=== PATIENT | female | born 1945 | race Caucasian/White ===

== ENCOUNTER 2020-09-19 09:04 | Outpatient (CLI) | payer OTHER, SELFPAY ==
--- NOTE | ~2020-09-19 | MM_ITS ---
EXAMINATION: MM screening [facility] BI w elena HISTORY: Screening mammogram TECHNIQUE: Craniocaudal and mediolateral oblique 3-D tomosynthesis images were obtained and synthetic 2-D images were generated. CAD analysis was submitted and interpreted. COMPARISON: 07/09/2019, 07/04/2019, 05/07/2017 BREAST PARENCHYMAL COMPOSITION: The breasts are almost entirely fatty. FINDINGS: There is no evidence of suspicious mass, calcification, or architectural distortion to sugg est malignancy in either breast. There has been no suspicious interval change. IMPRESSION: 1. No mammographic evidence of malignancy. 2. Recommend routine screening mammography in one year. BI-RADS Category 1: Negative Reviewed, dictated and finalized at location A. IC MAN
== END 2020-09-19 09:05 | disposition home or self-care (01) ==
LOC: ANHIMG 09:08
PROVIDERS: PCP Internal Medicine; Visit Provider Obstetrics & Gynecology
DX: Z12.31 Encounter for screening mammogram for malignant neoplasm of breast (principal)
CPT/HCPCS: 77063; 77067

== ENCOUNTER 2021-02-15 12:51 | Outpatient (CLI) | payer OTHER, SELFPAY ==
--- NOTE | ~2021-02-15 | DEXA_ITS ---
Bone Density Report Name: Liz Medellin Age: 75 Sex: Female Ethnicity: White Date of : 1945 Indication: postmenopausal; height loss; hysterectomy; Referring Provider: Gerda Madden Study: Bone densitometry was performed. Exam Date: February 15, 2021 Accession number: [id number] Bone Density: Region BMD T-score Z-score Classification AP Spine (L1, L2) 1.028 0.4 2.7 Normal Femoral Neck (Left) 0.743 -1.0 1.2 Normal Total Hip (Left) 0.938 0.0 1.8 Normal Total Hip Bilateral Avg 0.891 -0.4 1.4 Normal Femoral Neck (Right) 0.749 -0.9 1.2 Normal Total Hip (Right) 0.842 -0.8 1.0 Normal World Health Organization criteria for BMD impression classify patients as: Normal (T-score at or above -1.0), Osteopenia (T-score between -1.0 and -2.5), or Osteoporosis (T-score at or below -2.5). 10-year Fracture Risk: FRAX not reported because: All T-scores for Spine Total, Hip Total, Femoral Neck at or above -1.0 Clinical Information Provided by Patient: Has used the following medications: Vitamin D, Calcium Has the following medical conditions: Hysterectomy Patient maximum height was 64.5 Menopause Age: 56 Drinks caffeinated beverages Onset of menses at age 14 Number of children 2 Impression: The patient has normal bone mass. Discussion: BONE DENSITY IS ABOVE THE MINIMUM DESIRABLE LEVEL AT ALL SKELETAL SITES TESTED. This patient?s bone mineral density is above the minimum desirable level (T-score -1.0 or better) at all sites measured. The patient should follow a healthful lifestyle (good nutrition with adequate calcium and vitamin D, and appropriate weight-bearing exercise). Follow-Up: Consider repeating this study in 5 years or sooner if there is some new clinical indication. Reported by: BE on 02/15/2021 1:09:00 PM. Reviewed, dictated and finalized at location AKeo BEATTY
== END 2021-02-15 12:52 | disposition home or self-care (01) ==
LOC: ANHIMG 12:53
PROVIDERS: PCP Internal Medicine; Visit Provider Nurse Practitioner
DX: Z78.0 Asymptomatic menopausal state (principal)
CPT/HCPCS: 77080

== ENCOUNTER 2021-03-21 02:03 | Day surgery (SDC) | payer OTHER, SELFPAY ==
[2021-03-10 14:28] VITALS: BMI 35.7
--- NOTE | 2021-03-20 13:50 | WPDANESEPPF ---
Anes - Initial Pre Proc Eval Procedure: Operation Date: 03/21/21 10:30 Proposed Procedures p Colonoscopy - Damian Ball MD Date/Time: 03/20/21 13:50 Surgeon: Damian Ball MD Pre Op Diagnosis: positive cologuard Patient Data Age: 75 Gender: F Height: 1.57 m Weight: 88.6 kg Allergies Allergy/AdvReac Type Severity Reaction Status Date / Time No Known Allergies Allergy Verified 03/21/21 06:47 Home Medications Medication Instructions Recorded Confirmed Type alendronate 70 mg tablet 70 mg PO WEEKLY 08/09/20 03/10/21 History bupropion HCl 300 mg 24 hr tablet, 300 mg PO QAM 08/09/20 03/10/21 History extended release phentermine 37.5 mg tablet 37.5 mg PO DAILY 08/09/20 03/10/21 History sertraline 50 mg tablet 50 mg PO DAILY 08/09/20 03/10/21 History amlodipine 10 mg tablet 10 mg PO DAILY #90 tablet 10/30/20 03/10/21 Rx pantoprazole 40 mg tablet,delayed 40 mg PO QAM #90 tablet 11/30/20 03/10/21 Rx release atorvastatin 10 mg tablet 10 mg PO DAILY #90 tablet 02/23/21 03/10/21 Rx meloxicam 15 mg tablet 15 mg PO DAILY #90 tablet 03/15/21 Rx Patient hx anesthesia problems: none Family hx anesthesia problems: none PMFSH Past Medical History Medical History Anxiety Arthritis Carpal tunnel syndrome Chronic GERD COPD (chronic obstructive pulmonary disease) Hiatal hernia Hypertension Incisional hernia Osteoporosis Surgical History Surgical History H/O sinus surgery H/O: hysterectomy History of carpal tunnel release of both wrists History of cholecystectomy History of incisional hernia repair History of repair of hiatal hernia History of splenectomy Family History Family History Mother Family history of arthritis COPD (chronic obstructive pulmonary disease) Kidney disease Cancer Sibling Family history of emphysema Father Family history of heart disease in male family member before age 55 Lung cancer Other Family history of cardiovascular disease Hypertension Social History Social History Smoking status: Never smoker Alcohol intake: current Alcohol use details: rarely Substance use: never Substance use type: does not use Gender identity (if verbalized by the patient): Female Spiritual care concerns: No Anes - Eval Final PreProcedure Day of Procedure 03/20/21 13:50 Patient weight: obese Heart: regular rate and rhythm Lungs: clear to auscultation and normal air movement Airway: Mallampati scale class III Neurological: alert and oriented Last oral intake: >/= 8 hours ASA classification: III Emergent: no Anesthetic plan: proceed Anesthesia type and monitoring: general GIVS and standard monitoring Informed Consent: The patient's anesthetic plan and its attendant risks and benefits were discussed with the patient/family/POA. Questions were solicited and answers provided to the satisfaction of the patient/family/POA.
[2021-03-21 11:09] VITALS: BP 124/59; PULSE 88; RESP 18; TEMP 35.9; O2SAT 99
[2021-03-21] MEDS: LACTATED RINGERS 1,000 ML 150 ML IV CONT (11:10)
--- NOTE | 2021-03-21 12:23 | PM.HPGS ---
History of Present Illness History of Present Illness Consent: Risks, benefits, and alternatives have been discussed and questions answered. Patient agrees to proceed with procedure. Chief complaint: positive cologuard Narrative: Liz Medellin is a 75 year old female with last colonoscopy 10 years ago, had recent positive cologuard. Unfortunately earlier this morning she feel lightheaded and fell down to the floor, had facial trauma (nasal fracture) already evaluated in ER. Patient still would like to proceed with colonoscopy today. Review of Systems Constitutional: Constitutional: Denies headache(s) and Denies weakness Eyes: Eyes: Denies blurry vision ENT: Reports Normal hearing present, Denies headache(s) and Denies neck pain Cardiovascular: Cardiovascular: Denies chest pain and Denies dyspnea Respiratory: Respiratory: Denies dyspnea Gastrointestinal: Gastrointestinal: Reports no additional gastrointestinal complaints Genitourinary: Genitourinary: Denies dysuria Musculoskeletal: Musculoskeletal: Denies neck pain Integumentary/Breasts: Skin/Breast: Denies dry skin Neurologic: Reports Normal hearing present, Denies headache(s) and Denies weakness Psychiatric: Psychiatric: Denies anxiety Endocrine: Endocrine: Denies change in body appearance Hematologic/Lymphatic: Hematologic/Lymphatic: Denies easy bleeding Allergic/Immunologic: Allergic/Immunologic: Denies urticaria PMFSH Past Medical History Medical History Anxiety Arthritis Carpal tunnel syndrome Chronic GERD COPD (chronic obstructive pulmonary disease) Hiatal hernia Hypertension Incisional hernia Osteoporosis Surgical History Surgical History H/O sinus surgery H/O: hysterectomy History of carpal tunnel release of both wrists History of cholecystectomy History of incisional hernia repair History of repair of hiatal hernia History of splenectomy Family History Family History Mother Family history of arthritis COPD (chronic obstructive pulmonary disease) Kidney disease Cancer Sibling Family history of emphysema Father Family history of heart disease in male family member before age 55 Lung cancer Other Family history of cardiovascular disease Hypertension Social History Social History Smoking status: Never smoker Alcohol intake: current Alcohol use details: rarely Substance use: never Substance use type: does not use Gender identity (if verbalized by the patient): Female Spiritual care concerns: No Meds Home Medications and Allergies Home Medications Medication Instructions Recorded Confirmed Type alendronate 70 mg tablet 70 mg PO WEEKLY 08/09/20 03/10/21 History bupropion HCl 300 mg 24 hr tablet, 300 mg PO QAM 08/09/20 03/10/21 History extended release phentermine 37.5 mg tablet 37.5 mg PO DAILY 08/09/20 03/10/21 History sertraline 50 mg tablet 50 mg PO DAILY 08/09/20 03/10/21 History amlodipine 10 mg tablet 10 mg PO DAILY #90 tablet 10/30/20 03/10/21 Rx pantoprazole 40 mg tablet,delayed 40 mg PO QAM #90 tablet 11/30/20 03/10/21 Rx release atorvastatin 10 mg tablet 10 mg PO DAILY #90 tablet 02/23/21 03/10/21 Rx meloxicam 15 mg tablet 15 mg PO DAILY #90 tablet 03/15/21 03/21/21 Rx Allergies Allergy/AdvReac Type Severity Reaction Status Date / Time No Known Allergies Allergy Verified 03/21/21 06:47 Vital Signs Vital Signs - 24 hr 03/21/21 11:09 Temperature 96.6 F L Pulse Rate 88 Respiratory Rate 18 Blood Pressure 124/59 L Pulse Oximetry 99 Exam Const: General: comfortable and no acute distress HENMT: Other: facial trauma from recent fall Neck: Neck: no JVD Resp: Auscultation: clear to auscultation bilaterally Cardio: Rate: regular ra
[2021-03-21 12:54] VITALS: BP 125/65; PULSE 89; RESP 21; O2SAT 97
[2021-03-21 13:04] VITALS: BP 133/72; PULSE 79; RESP 16; O2SAT 100
[2021-03-21 13:14] VITALS: BP 144/58; PULSE 73; RESP 19; O2SAT 100
== END 2021-03-21 13:33 | disposition home or self-care (01) ==
PROVIDERS: PCP Internal Medicine; Visit Provider Internal Medicine Gastroenterology
PROC: 0DJD8ZZ Inspection of Lower Intestinal Tract, Via Natural or Artificial Opening Endoscopic (ICD-10-PCS; CPT 45378; principal; 2021-03-21 10:30)
DX: R19.5 Other fecal abnormalities (principal); K57.30 Diverticulosis of large intestine without perforation or abscess without bleeding; K64.8 Other hemorrhoids; I10 Essential (primary) hypertension; J44.9 Chronic obstructive pulmonary disease, unspecified; K21.9 Gastro-esophageal reflux disease without esophagitis; M81.0 Age-related osteoporosis without current pathological fracture; F41.9 Anxiety disorder, unspecified
CPT/HCPCS: 45378; J2704; J7120

== ENCOUNTER 2021-03-21 06:24 | Emergency (ER) | payer OTHER, SELFPAY ==
[2021-03-21] VITALS (24 sets, daily range): BP systolic 113–180; BP diastolic 70–99; PULSE 77–108; RESP 11–21; TEMP 36.7; O2SAT 93–100
--- NOTE | ~2021-03-21 | CT_ITS ---
EXAMINATION: CT facial & cervical spine wo EXAM DATE: 03/21/2021 08:05 INDICATION: Fall, right facial trauma and left posterior neck pain. TECHNIQUE: Spiral CT of the facial bones was acquired in the axial plane. Coronal reformatted images were also reviewed. Spiral CT of the cervical spine was performed without contrast. Axial images we re reviewed. Coronal and sagittal reformatted images were also reviewed. The dose-length product (DL P) for this examination was 336.96 mGy-cm. The exposure was tailored according to patient size, and iterative reconstruction (ASIR) was used as additional dose reduction technique. There is no prior s tudy for comparison. FINDINGS: FACIAL CT: Acute closed posttraumatic nasal bone fractures bilaterally with mild buckling. Acute feng al septal fracture. There is moderate rightward nasal septal deviation. There are maxillary sinus win lisa procedures. The orbits and sinuses are intact. The orbits, globes and extraocular muscles are un remarkable. Bilateral cataract surgery. Mandible intact. The visualized sinuses and mastoid air cells are well aerated. Some debris in the right external auditory canal. CERVICAL CT: There is no evidence of acute cervical fracture. The odontoid process is intact. Pre-d ens space is normal. Prevertebral soft tissue is normal. There are no soft tissue abnormalities elsi ntified. There is no disc space widening or traumatic vertebral body subluxation suspected. There i s moderate cervical spondylosis. A detailed level by level evaluation of spondylosis can be added as addendum if requested. IMPRESSION: 1. Nasal bone and nasal septal fractures. 2. Cervical spondylosis without fracture. Reviewed, dictated and finalized at location A.
--- NOTE | ~2021-03-21 | CT_ITS ---
EXAMINATION: CT brain wo con DATE: 03/21/2021 08:06 INDICATION: Fall with head injury and facial trauma TECHNIQUE: Computed tomography (CT) of the head was performed without intravenous contrast. Sagittal and coronal reconstructions were performed. The mA was adjusted according to patient size. Iterative reconstruction technique was employed. The dose-length product was 336.96 mGy-cm. COMPARISON: head CT dated 08/18/2015 FINDINGS: Incompletely visualized bilateral nasal bone fractures No calvarial fracture. No acute intracranial h emorrhage, acute infarction or abnormal extra axial fluid collection. Ventricles are normal and symme tric. No mass/mass effect. Changes of bilateral intraocular lens replacement. The orbits, paranasal s inuses and mastoid air cells are normal. IMPRESSION: 1. No calvarial fracture or acute intracranial process. 2. Bilateral nasal bone fractures. See separate cervical spine and maxillofacial CT for further detai l. Reviewed, dictated and finalized at location D. IMPRESSION: 1. No calvarial fracture or acute intracranial process. 2. Bilateral nasal bone fractures. See separate cervical spine and maxillofacia l CT for further detail.
--- NOTE | ~2021-03-21 | XR_ITS ---
EXAMINATION: XR knee LT min 4V EXAM DATE: 03/21/2021 08:15 INDICATION: Knee pain. TECHNIQUE: Left knee frontal, crosstable lateral, orthogonal oblique projections for interpretation. Comparison is made to prior examination from 2018. FINDINGS: No evidence osteochondral defect or joint body in the left knee joint. Mild patellofemor al and medial tibiofemoral compartment primary osteoarthritis. There are no acute fractures or disloc ations identified. There is no subcutaneous gas. The soft tissue is unremarkable. There are no ra diopaque foreign bodies. IMPRESSION: No acute osseous findings. Reviewed, dictated and finalized at location A. IMPRESSION: No acute osseous findings.
--- NOTE | ~2021-03-21 | XR_ITS ---
EXAMINATION: XR hand LT min 3V, XR wrist LT min 3V EXAM DATE: 03/21/2021 08:15 INDICATION: Initial encounter following injury, with pain of the left hand and wrist. TECHNIQUE: Left hand frontal, lateral and oblique projections obtained and reviewed. Left wrist fron vick, frontal with ulnar deviation, oblique and lateral projections obtained and reviewed. There is n o prior study for comparison. FINDINGS: Left metacarpal bones are unremarkable. Left wrist scapholunate joint space is maintained . Moderate primary osteoarthritis of the 2nd distal interphalangeal joint, the triscaphe and 1st car pometacarpal joint. Less osteoarthritis elsewhere. There are no acute fractures or dislocations ident ified. There is no subcutaneous gas. The soft tissue is unremarkable. There are no radiopaque for eign bodies. IMPRESSION: No acute osseous findings. Reviewed, dictated and finalized at location A. IMPRESSION: No acute osseous findings. IMPRESSION: No acute osseous findings.
--- NOTE | ~2021-03-21 | XR_ITS ---
EXAMINATION: XR chest 2V DATE: 03/21/2021 08:15 INDICATION: Fall. Weakness. TECHNIQUE: frontal and lateral views of the chest were obtained. COMPARISON: Chest radiograph dated 03/07/2019 FINDINGS: The lungs remain clear with no focal airspace opacities, pulmonary edema, pleural effusion or pneumot horax. The cardiomediastinal silhouette is normal. Cholecystectomy clips in the right upper quadrant. Additional surgical clips in the left upper quadrant suggesting prior splenectomy. Moderate thoracic spondylosis. IMPRESSION: 1. No acute cardiopulmonary disease. Reviewed, dictated and finalized at location D.
--- NOTE | 2021-03-21 06:53 | ECG_ITS ---
Measurements Intervals [place] Rate: 77 P: 39 HI: 185 QRS: -58 QRSD: 103 T: 16 QT: 394 QTc: 447 Interpretive Statements SINUS RHYTHM LEFT ANTERIOR FASCICULAR BLOCK VOLTAGE CRITERIA FOR LVH MINIMAL Q WAVES- HIGH LATERAL LEADS BASELINE ARTIFACT- II, AVR, AVF, V1, V3-V6 ABNORMAL ECG Electronically Signed On 03-21-2021 6:55:14 CDT by Oskar Lawrence D.O.
--- NOTE | 2021-03-21 08:00 | PC.NURSE ---
PT IN CT WILL MEDICATE AND GET ORTHOSTATICS UPON RETURN.
--- NOTE | 2021-03-21 08:01 | ED.FALL ---
HPI - Fall General Chief Complaint: Fall Stated Complaint: weakness/ fall/ facial injury Time Seen by Provider: 03/21/21 07:03 Source: patient and RN notes reviewed Mode of arrival: ambulatory Limitations: no limitations History of Present Illness HPI Narrative: This is a 75 year old female who presents for evaluation of weakness and fall. Patient has been performing bowel prep for a colonoscopy that is scheduled today. She has been having diarrhea all night and this morning. She states this morning she was walking and she felt weak. This caused her to fall forward hitting her face. She denies LOC. She is complaining nose swelling, epistaxis, left wrist, left hand and left knee pain. She was able to walk to care. She denies chest pain, sob, nausea or vomiting. She denies blood in her stool today. Related Data Home Medications Medication Instructions Recorded Confirmed alendronate 70 mg tablet 70 mg PO WEEKLY 08/09/20 03/10/21 bupropion HCl 300 mg 24 hr tablet, 300 mg PO QAM 08/09/20 03/10/21 extended release phentermine 37.5 mg tablet 37.5 mg PO DAILY 08/09/20 03/10/21 sertraline 50 mg tablet 50 mg PO DAILY 08/09/20 03/10/21 Allergies Allergy/AdvReac Type Severity Reaction Status Date / Time No Known Allergies Allergy Verified 03/21/21 06:47 Review of Systems Review of Systems: All systems reviewed & are unremarkable except as noted in HPI and below PMFSH Past Medical History Medical History Anxiety Arthritis Carpal tunnel syndrome Chronic GERD COPD (chronic obstructive pulmonary disease) Hiatal hernia Hypertension Incisional hernia Osteoporosis Surgical History Surgical History H/O sinus surgery H/O: hysterectomy History of carpal tunnel release of both wrists History of cholecystectomy History of incisional hernia repair History of repair of hiatal hernia History of splenectomy Family History Family History Mother Family history of arthritis COPD (chronic obstructive pulmonary disease) Kidney disease Cancer Sibling Family history of emphysema Father Family history of heart disease in male family member before age 55 Lung cancer Other Family history of cardiovascular disease Hypertension Social History Social History Smoking status: Never smoker Alcohol intake: current Alcohol use details: rarely Substance use: never Substance use type: does not use Gender identity (if verbalized by the patient): Female Spiritual care concerns: No Exam Const: General: no acute distress and alert Orientation/consciousness: patient oriented x3 HENMT: Head: normocephalic and atraumatic General nose exam: Abnormal nasal septum present deviated Mouth: Yes Normal oral and palatal mucosa present and Yes lip normal Throat: uvula midline Other: nasal bridge swelling and bruising; dried blood in mouth but no oral laceration or loose teeth Eyes: EOM: EOMs intact bilaterally Resp: Effort & Inspection: normal respiratory effort and no retractions Auscultation: clear to auscultation bilaterally Cardio: Rate: regular rate Rhythm: regular rhythm Heart sounds: no murmurs GI: GI Palp: Yes Soft to palpation, No Tenderness to palpation present (GI) and No Guarding due to palpation present (GI) Auscultation: normal bowel sounds Skin: Other: small bruising to left knee Neuro: General: patient oriented x3, moves all extremities and CN's II-XI intact bilaterally Extrem: Other: FROM Course Reevaluation(s) Reevaluation #1: Dr. Zandra Collado called and he states patient can still get her colonoscopy. PAtient wants to have colonoscopy today. She has been given 2 L IVF. PAtient was dehydrated from her bowel prep. She was able to walk to bathroom
[2021-03-21] MEDS: SODIUM CHLORIDE 0.9% IV 1,000 ML 999 ML IV CONT ×2 (08:29→09:26)
[2021-03-21 08:39] LABS: Basophils Absolute Auto 0.1 K/mm3 (0.0-0.1); Basophils Percent Auto 0.4 % (0.2-1.2); Eosinophils Percent Auto 0.2 % (0-4.4); Hematocrit 44.4 % (37.0-47.0); Hemoglobin 14.7 g/dL (12.0-15.0); Immature Granulocyte Absolute 0.07 K/mm3 (0.00-0.031); Immature Granulocyte Percent A 0.5 % (0-0.5); Lymphocytes Absolute Auto 2.49 K/mm3 (0.9-3.2); Lymphocytes Percent Auto 18.1 % (18.3-44.2); Mean Corpuscular HGB Conc 33.1 g/dl (32-36); Mean Corpuscular Hemoglobin 31.5 pg (26-34); Mean Corpuscular Volume 95.3 fl (80-100); Mean Platelet Volume 10.3 fl (7.4-10.4); Monocytes Absolute Auto 0.6 K/mm3 (0.1-0.6); Monocytes Percent Auto 4.4 % (2.6-8.5); Neutrophils Absolute Auto 10.5 K/mm3 (1.3-6.7); Neutrophils Percent Auto 76.4 % (45.5-73.1); Platelet Count Result 332 k/mm3 (150-375); Red Blood Count 4.66 M/mm3 (4.2-5.4); Red Cell Distribution Width 13.3 % (11.5-14.5); White Blood Count 13.8 K/mm3 (4.5-10.0)
--- NOTE | 2021-03-21 08:40 | PC.NURSE ---
Pt unable to urinate, refusing cath, aware of need for ua.
--- NOTE | 2021-03-21 09:19 | PC.NURSE ---
Pt assisted to restroom, steady gait, denies dizziness. Attempted urine sample in hat but missed, states she will attempt again tyler. GI lab contacted and informed that pt is in ed.
--- NOTE | 2021-03-21 09:28 | PC.NURSE ---
Spoke with Tata from GI lab, she states that they are willing to scope pt today but she must be completely dc from ed, edp informed and states that she is waiting on cmp to result. Pt updated.
[2021-03-21 10:07] LABS: Alanine Aminotransferase 22 U/L (4-35); Albumin Level 3.9 g/dL (3.5-5.1); Alkaline Phosphatase 92 U/L (38-126); Anion Gap 7 mmol/L (8-16); Aspartate Amino Transferase 30 U/L (14-36); Bilirubin,Total 1.4 mg/dL (0.2-1.3); Blood Urea Nitrogen 15 mg/dL (7-17); Calcium 9.7 mg/dL (8.4-10.2); Carbon Dioxide 24 mmol/L (22-30); Chloride 105 mmol/L (98-107); Estimated CRCL calculation 44 ml/min; Estimated Glomerular Filt Rate 54; Glucose 119 mg/dL (65-110); Potassium 3.7 mmol/L (3.4-5.0); Sodium 136 mmol/L (137-145)
[2021-03-21 10:43] LABS: Add Urine Microscopic? YES; Appearance Urine Clear (Clear); Bilirubin Urine Negative (Negative); Blood Urine 1+ (Negative); Color Urine Colorless (Yellow); Glucose Urine UA Negative (Negative); Ketones Urine Negative (Negative); Leukocyte Esterase Ur Negative LEU/UL (Negative); Nitrate Urine Negative (Negative); Protein Urine Negative (Negative); Urobilinogen Urine Negative mg/dL (<2.0); WBC Urine 0-3 /hpf
[2021-03-21 11:32] LABS: Specific Grav Ur 1.004 (1.001-1.035)
== END 2021-03-21 10:50 | disposition home or self-care (01) ==
PROVIDERS: Emergency Provider General Practice; PCP Internal Medicine
DX: S02.2XXA Fracture of nasal bones, initial encounter for closed fracture (principal); E86.0 Dehydration; F41.9 Anxiety disorder, unspecified; J44.9 Chronic obstructive pulmonary disease, unspecified; I10 Essential (primary) hypertension; W19.XXXA Unspecified fall, initial encounter
CPT/HCPCS: 36415; 70450; 70486; 71046; 72125; 73110; 73130; 73564; 80053; 81001; 85025; 93005; 96360; 96361; 99284; J2704; J7030; J7120

== ENCOUNTER 2021-07-24 14:30 | Outpatient (CLI) | payer OTHER, SELFPAY ==
--- NOTE | ~2021-07-24 | XR_ITS ---
XR knee RT 3V DATE: 07/24/2021 14:49 INDICATION: Generalized right knee pain TECHNIQUE: AP, lateral and sunrise views COMPARISON: None FINDINGS: There is mild loss of height at the medial compartment with minimal shanel-articular spurring . There is minimal shanel-articular spurring at the patellofemoral joint with slight articular irregulari ty of the patella. No fracture or dislocation or joint effusion is detected. No periosteal reaction or bone destruction. IMPRESSION: Mild osteoarthritis Reviewed, dictated and finalized at location A. 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
== END 2021-07-24 14:31 | disposition home or self-care (01) ==
LOC: ANHIMG 14:33
PROVIDERS: PCP Internal Medicine; Visit Provider Internal Medicine
DX: M17.11 Unilateral primary osteoarthritis, right knee (principal)
CPT/HCPCS: 73562

== ENCOUNTER → 2021-08-19 06:56 | Outpatient (CLI) | payer OTHER, SELFPAY ==
[2021-08-19 20:23] LABS: SARS-CoV-2 RNA PCR Positive
== END ==
PROVIDERS: PCP Internal Medicine; Visit Provider Internal Medicine
DX: U07.1 COVID-19 (principal)
CPT/HCPCS: C9803; U0003; U0005

== ENCOUNTER 2021-10-12 07:09 | Outpatient (CLI) | payer OTHER, SELFPAY ==
--- NOTE | ~2021-10-12 | MM_ITS ---
EXAMINATION: MM screening [facility] BI w elena HISTORY: Screening mammogram TECHNIQUE: Craniocaudal and mediolateral oblique 3-D tomosynthesis images were obtained and synthetic 2-D images were generated. CAD analysis was submitted and interpreted. COMPARISON: 09/19/2020, 07/09/2019, 07/04/2018 BREAST PARENCHYMAL COMPOSITION: There are scattered areas of fibroglandular density. FINDINGS: There is no suspicious mass, calcification, or architectural distortion to suggest malignan cy in either breast. There has been no suspicious interval change. IMPRESSION: 1. No mammographic evidence of malignancy. 2. Recommend routine screening mammography in one year. BI-RADS Category 1: Negative Reviewed, dictated and finalized at location A.
== END 2021-10-12 07:10 | disposition home or self-care (01) ==
LOC: ANHIMG 07:10
PROVIDERS: PCP Internal Medicine; Visit Provider Internal Medicine
DX: Z12.31 Encounter for screening mammogram for malignant neoplasm of breast (principal)
CPT/HCPCS: 77063; 77067

== ENCOUNTER 2021-11-08 09:47 | Outpatient (CLI) | payer OTHER, SELFPAY ==
--- NOTE | ~2021-11-08 | XR_ITS ---
EXAMINATION: XR lg joint inject/asp w image DATE: 11/08/2021 10:42 INDICATION: Left hip pain. TECHNIQUE: A time-out was performed to verify the patient's name, date of , and procedure to b e performed. The procedure including the risks, benefits, and alternatives was discussed with the pat ient. Risks discussed included bleeding and infection. The patient understood the risks and agreed to proceed. The skin overlying the left hip joint was prepped and draped in usual sterile fashion. An esthetic was administered with 1% lidocaine subcutaneously. A 22 G needle was advanced under fluoros copic guidance into the joint. Injection of 1 mL of Omnipaque 240 confirmed intra-articular position of the needle. Subsequently, injectate consisting of 5 mL 1% lidocaine and 2 mL 10 mg/mL Kenalog wa s instilled. The needle was removed and the entry site was cleaned and dressed. There were no immed iate complications. Fluoroscopy exposure time was 0.1 minutes. The total number of images was 2. FINDINGS: Real-time fluoroscopy demonstrates the needle in the left hip joint. Patient's pain prior t o procedure:8/10. Patient's pain following the procedure: 0/10. IMPRESSION: 1. Fluoroscopy guided left hip joint injection of local anesthetic and steroid with decrease in the p atient's presenting pain. Reviewed, dictated and finalized at location A. IMPRESSION: 1. Fluoroscopy guided left hip joint injection of local anesthetic and steroid with decrease in the patient's presenting pain.
== END 2021-11-08 09:48 | disposition home or self-care (01) ==
PROVIDERS: PCP Internal Medicine; Visit Provider Orthopaedic Surgery
DX: M25.552 Pain in left hip (principal)
CPT/HCPCS: 20610; 77002; J3301; Q9966

== ENCOUNTER 2021-12-21 11:00 | Outpatient (RCR) | payer OTHER, SELFPAY ==
--- NOTE | 2021-11-17 09:39 | PTOPEVAL ---
PHYSICAL THERAPY INITIAL EVALUATION. Thank you for referring Liz Medellin to [facility].? The patient is scheduled to be seen for therapy? 2x/week for 4 weeks. Please review, sign, date and return this plan of care NAYA. I agree with and certify that the following plan of care is medically necessary. Referring Physician Date Attending Provider: Navid Chauhan APN *PT Outpatient Evaluation Start: 11/17/21 Evaluation Information Diagnosis Low back pain Onset ~1 month Subjective Information Pt states about 1 month ago Query Text:As Reported By Patient/ her R knee starting bother her Family , she received an injection and this pain went away. Soon after that her L hip and low back on the L started bother her as well. She received an injection in her L hip as well . This helped a little but she is still having pain. She reports difficulties walking, sleeping, sitting too long, and ambulating stairs. Pain Assessment Left Hip(s) Reported Pain Level 3 Pain Description Aching,Dull,Sharp Pain Radiation Back,Left Leg Pain Frequency Acute,Intermittent Lowest Pain Intensity 1 Greatest Pain Intensity 8 Pain Aggravating Factors Prolonged Position,Sitting, Stair Climbing Pain Relief Interventions Used By Heat,Inactivity/Rest, Patient Medication Lumbar ROM Lumbar Flexion Active [place] Lumbar Extension (0-40) 10 Lateral Flexion B lateral flexion - 6 in above Query Text:Active Hands to: lateral knee joint line Lateral Rotation Right (0-45) 25 Lateral Rotation Left (0-45) 25 Lumbar ROM 50% of Normal Normal Lumbar Segmental Motion No Lower Extremity Range of Motion General Lower Extremity Range of Motion WFL/Left,WFL/Right Lower Extremity Muscle Strength Testing Gross Lower Extremity Strength B LE grossly 4/5 R glute med 3/5 L glute med 2/5 Muscle Length Testing Two-Joint Hip Flexor Shortened Muscles Short (R) Iliopsoas,Short (L) Iliopsoas Right Prone Hip Internal Rotator Length 30 Left Prone Hip Internal Rotator Length ( 15 Right Prone Hip External Rotator Length 50 Left Prone Hip External Rotator Length ( 30 Left Hamstring Length -45 Right Hamstring Length
--- NOTE | 2021-12-21 11:29 | PTOPEVAL ---
PHYSICAL THERAPY PROGRESS REPORT AND DISCHARGE SUMMARY. Thank you for referring Liz Medellin to [facility].? The patient is to be discharged from skilled therapy services at this time. Please review, sign, date and return this plan of care NAYA. I agree with and certify that the following plan of care is medically necessary. Referring Physician Date Attending Provider: Navid Chauhan APN Evaluation Information Diagnosis Low back pain Onset ~1 month Subjective Information Pt states her back pain and Query Text:As Reported By Patient/ hip pain have both improved. Family She states if she sits too long her legs start to get tight so she has made a point to stand and move around more often. She only reports mild achy pain in her posterior thigh this date. She states her pain has become less frequent Pain Assessment Self Report Pain Assessment Left Hip(s) Reported Pain Level 4 Greatest Pain Intensity 8 Cervical and Lumbar ROM Lumbar ROM Lumbar Flexion Active [place],Ankle Lumbar Extension (0-40) 30 Lateral Flexion B lateral flexion - 2 in above Query Text:Active Hands to: lateral knee joint line Lateral Rotation Right (0-45) 40 Lateral Rotation Left (0-45) 40 Lumbar ROM WNL Normal Lumbar Segmental Motion No Lumbar Comments No pain with active lumbar motion Lower Extremity Range of Motion General Lower Extremity Range of Motion WFL/Left,WFL/Right Lower Extremity Muscle Strength Testing Gross Lower Extremity Strength B LE grossly 4/5 R glute med 3/5 L glute med 2/5 Muscle Length Testing Two-Joint Hip Flexor Shortened Muscles Short (R) Iliopsoas,Short (L) Iliopsoas,Short (R) Rectus Femoris,Short (L) Rectus Femoris Right Prone Hip Internal Rotator Length 30 Left Prone Hip Internal Rotator Length ( 15 Right Prone Hip External Rotator Length 50 Left Prone Hip External Rotator Length ( 30 Left Hamstring Length -40 Right Hamstring Length -35 Palpation Assessment Palpation L greater trochanter Balance Assessment Timed Up and Go Test (TUG) (Seconds) 9 Assistive Devices None Comments Initially: 12s 5/26/22: 9s 5 Time Sit to Stand Time in Seconds 21
== END 2021-12-21 15:17 | disposition home or self-care (01) ==
LOC: ANHPT 11:00
PROVIDERS: PCP Internal Medicine; Visit Provider Nurse Practitioner
DX: M54.50 Low back pain, unspecified (principal); M16.12 Unilateral primary osteoarthritis, left hip
CPT/HCPCS: 97014; 97110; 97112; 97161; 97530; G0283

== ENCOUNTER 2022-01-09 07:31 | Outpatient (CLI) | payer OTHER, SELFPAY ==
--- NOTE | ~2022-01-09 | MR_ITS ---
EXAMINATION: MR lumbar spine wo con DATE: 01/09/2022 08:37 INDICATION: Low back pain, unspecified. TECHNIQUE: Magnetic resonance imaging (MRI) of the lumbar spine was performed without intravenous con trast. Sequences included sagittal T2-weighted FSE, sagittal T2-weighted FS FSE, sagittal T1-weighted FSE, and axial T2-weighted FSE. COMPARISON: Lumbar spine radiographs 07/01/2017 FINDINGS: There is 4 mm anterolisthesis of L4 on L5. Vertebral body heights are normal. There is yennifer rely decreased disc height at T10-T11, T11-T12, and L3-L4, mildly decreased disc height at L4-L5, and severely decreased disc height at L5-S1 with endplate remodeling. There is interbody fusion at L5-S1 . The distal spinal cord signal intensity is normal. The conus medullaris is at L1. The following dis c levels are specifically discussed: L1-L2: The disc is bulging and has an annular fissure. There is moderate right and mild left facet shantel int osteoarthritis. There is mild left neural foraminal stenosis. There is mild central canal stenosi s. L2-L3: The disc is bulging. There is severe bilateral facet joint osteoarthritis. There is mild bilat eral neural foraminal stenosis. There is mild central canal stenosis. L3-L4: The disc is bulging and has an annular fissure. There is severe bilateral facet joint osteoart hritis. There is mild bilateral neural foraminal stenosis. There is mild central canal stenosis. L4-L5: The disc is bulging and has an annular fissure. There is severe bilateral facet joint osteoart hritis. There is mild bilateral neural foraminal stenosis. There is mild central canal stenosis. L5-S1: The disc is bulging. There is severe bilateral facet joint osteoarthritis. There is mild left neural foraminal stenosis. There is mild central canal stenosis. IMPRESSION: 1. Severe lumbar and lower thoracic spondylosis. Reviewed, dictated and finalized at location B.
== END 2022-01-09 07:32 | disposition home or self-care (01) ==
PROVIDERS: PCP Internal Medicine; Visit Provider Nurse Practitioner
DX: M54.42 Lumbago with sciatica, left side (principal); M47.816 Spondylosis without myelopathy or radiculopathy, lumbar region; M47.814 Spondylosis without myelopathy or radiculopathy, thoracic region
CPT/HCPCS: 72148

== ENCOUNTER 2022-08-07 16:07 | Outpatient (NON) | payer OTHER, SELFPAY | END 2022-08-07 16:08 | disposition home or self-care (01) | LOC: ANHLAB 08-08 16:09 | PROVIDERS: PCP Nurse Practitioner; Visit Provider Nurse Practitioner | DX: D18.01 Hemangioma of skin and subcutaneous tissue (principal) | CPT/HCPCS: 88305 ==

== ENCOUNTER 2022-09-24 11:31 | Emergency (ER) | payer OTHER, SELFPAY ==
[2022-09-24 11:35] VITALS: BP 130/75; PULSE 71; RESP 16; TEMP 36.4; O2SAT 100
--- NOTE | 2022-09-24 12:31 | ED.EPISTAXIS ---
HPI - Epistaxis General Chief complaint: Epistaxis Stated complaint: nosebleed Time Seen by Provider: 09/24/22 12:07 History of Present Illness HPI Narrative: Patient is a 77-year-old female presenting with epistaxis. Patient states that in the middle of the night she developed a nosebleed from her left nostril. States that she coughed up a couple of clots. States that she takes a low-dose aspirin daily but no other antiplatelets or anticoagulation. States that the bleeding was able to be controlled by applying pressure. She is currently not bleeding. States that she was unable to get an appointment with her PCP until next week so she came in for evaluation. No chest pain, shortness of breath, lightheadedness. No other concerns or symptoms at this time. Related Data Home Medications Medication Instructions Recorded Confirmed cholecalciferol (vitamin D3) 50 50 mcg PO DAILY 12/05/21 06/28/22 mcg (2,000 unit) capsule atorvastatin 20 mg tablet 20 mg PO DAILY 06/28/22 06/28/22 gabapentin 100 mg capsule 100 mg PO BID 06/28/22 06/28/22 Allergies Allergy/AdvReac Type Severity Reaction Status Date / Time No Known Allergies Allergy Verified 06/28/22 13:42 Review of Systems Review of Systems: All systems reviewed & are unremarkable except as noted in HPI and below PMFSH Past Medical History Medical History Anxiety Arthritis Asthma Carpal tunnel syndrome Chronic GERD COPD (chronic obstructive pulmonary disease) Degenerative disc disease, lumbar Diabetes Hiatal hernia Hyperlipidemia Hypertension Incisional hernia Mitral valve prolapse Osteoporosis TIA (transient ischemic attack) Surgical History Surgical History H/O sinus surgery H/O: hysterectomy History of carpal tunnel release of both wrists History of cholecystectomy History of incisional hernia repair History of repair of hiatal hernia History of splenectomy Family History Family History Mother Heart disease Sibling Family history of emphysema Cancer Father Family history of heart disease in male family member before age 55 Lung cancer Other Family history of cardiovascular disease Social History Social History Smoking status: Never smoker Alcohol intake: current Alcohol use details: rarely Substance use: never Substance use type: does not use Lack of Transportation: No Lack of Food: Never True Current Housing: I Have Housing Concerned About Future Housing: No Difficulty Paying Gas/Electric Bills: No Difficulty Paying for Meds: No Currently Unemployed: No Education: High School Diploma/GED Difficulty w/ Childcare or Family Care: No Living arrangements: with family Additional living arrangements comments: Occupation/Education: retired Gender identity (if verbalized by the patient): Female Spiritual care concerns: No Exam Narrative: GENERAL: Well-appearing, well-nourished, and in no acute distress. HEAD: Normocephalic, atraumatic. EYES: PERRLA and EOMI. ENT: Nares clear, no rhinorrhea or epistaxis. Mucous membranes moist. No epistaxis currently; nares are clear; oropharynx is clear NECK: Supple. CHEST: Clear to auscultation. No respiratory distress. HEART: Regular rate and rhythm. No murmur heard. Normal peripheral pulses. ABDOMEN: Soft, nontender, nondistended EXTREMITIES: Normal range of motion. No edema. SKIN: Warm, dry, no rash. NEURO: No focal deficits. Alert and oriented x3. PSYCH: Normal mood and affect. Course Vital Signs Vital signs: Vital Signs Temperature 97.5 F L 09/24/22 11:35 Pulse Rate 71 09/24/22 11:35 Respiratory Rate 16 09/24/22 11:35 Blood Pressure 130/75 09/24/22 11:35 Pulse Oximetry 100 09/24/22 11:35 Oxygen D
== END 2022-09-24 12:50 | disposition home or self-care (01) ==
PROVIDERS: Emergency Provider Emergency Medicine; PCP Nurse Practitioner
DX: R04.0 Epistaxis (principal); F41.9 Anxiety disorder, unspecified; M19.90 Unspecified osteoarthritis, unspecified site; K21.9 Gastro-esophageal reflux disease without esophagitis; J44.9 Chronic obstructive pulmonary disease, unspecified; E11.9 Type 2 diabetes mellitus without complications; E78.5 Hyperlipidemia, unspecified; I10 Essential (primary) hypertension
CPT/HCPCS: 99283

== ENCOUNTER 2022-10-03 09:38 | Emergency (ER) | payer OTHER, SELFPAY ==
[2022-10-03 10:01] VITALS: BP 145/67; PULSE 79; RESP 16; TEMP 36.3; O2SAT 97
--- NOTE | 2022-10-03 11:14 | ED.URI ---
HPI - URI/Sore Throat General Chief Complaint: Upper Respiratory Infection Stated Complaint: cough Time Seen by Provider: 10/03/22 11:14 Source: patient and RN notes reviewed Mode of arrival: ambulatory Limitations: no limitations History of Present Illness HPI Narrative: 77-year-old female presented for complaint of sinus congestion and productive cough of yellow/white sputum and intermittent headache for 5 days. Denies associated chest pain, shortness of breath, wheezing, nausea, vomiting, fatigue, fevers or chills. Taking whole bottle of mucinex without relief. Denies sick contacts. MD elicited complaint: cough Related Data Home Medications Medication Instructions Recorded Confirmed cholecalciferol (vitamin D3) 50 50 mcg PO DAILY 12/05/21 06/28/22 mcg (2,000 unit) capsule gabapentin 100 mg capsule 100 mg PO BID 06/28/22 06/28/22 aspirin 81 mg chewable tablet 81 mg PO DAILY 10/03/22 10/03/22 Allergies Allergy/AdvReac Type Severity Reaction Status Date / Time No Known Allergies Allergy Verified 10/03/22 10:14 Review of Systems Review of Systems: CONSTITUTIONAL: Denies malaise, chills, sweats, fever EYES: Denies visual changes, redness, or discharge ENT: Reports rhinorrhea, congestion, denies sinus pain, otalgia, sore throat CARDIOVASCULAR: Denies chest pain, palpitations, edema RESPIRATORY: Reports cough, post nasal drainage. Denies dyspnea GASTROINTESTINAL: Denies abdominal pain, nausea, vomiting, diarrhea SKIN: Denies rash or itching MUSCULOSKELETAL: Denies myalgia PMFSH Past Medical History Medical History Anxiety Arthritis Asthma Carpal tunnel syndrome Chronic GERD COPD (chronic obstructive pulmonary disease) Degenerative disc disease, lumbar Diabetes Hiatal hernia Hyperlipidemia Hypertension Incisional hernia Mitral valve prolapse Osteoporosis TIA (transient ischemic attack) Surgical History Surgical History H/O sinus surgery H/O: hysterectomy History of carpal tunnel release of both wrists History of cholecystectomy History of incisional hernia repair History of repair of hiatal hernia History of splenectomy Family History Family History Mother Heart disease Sibling Family history of emphysema Cancer Father Family history of heart disease in male family member before age 55 Lung cancer Other Family history of cardiovascular disease Social History Social History Smoking status: Never smoker Alcohol intake: current Alcohol use details: rarely Substance use: never Substance use type: does not use Lack of Transportation: No Lack of Food: Never True Current Housing: I Have Housing Concerned About Future Housing: No Difficulty Paying Gas/Electric Bills: No Difficulty Paying for Meds: No Currently Unemployed: No Education: High School Diploma/GED Difficulty w/ Childcare or Family Care: No Living arrangements: with family Additional living arrangements comments: Occupation/Education: retired Gender identity (if verbalized by the patient): Female Spiritual care concerns: No Exam Narrative: GENERAL: mildly Ill-appearing, nontoxic no acute distress. HEAD: Normocephalic EYES: PERRLA, conjunctivae clear ENT: Mucous membranes moist. TMs pearly mari with dull light reflex bilaterally; no tragal tenderness. Oropharynx erythematous without lesions or exudate NECK: Supple. No lymphadenopathy CHEST: Clear to auscultation, breath sounds equal. No wheezing, rhonchi, rales, or stridor. No respiratory distress, speaks in full sentences. HEART: Regular rate and rhythm. No murmur heard. SKIN: Warm, dry, no rash. NEURO: Alert and oriented x3. PSYCH: Normal mood and affect Course Course Emergency Course:
== END 2022-10-03 11:26 | disposition home or self-care (01) ==
PROVIDERS: Emergency Provider Nurse Practitioner Family; PCP Internal Medicine
DX: J06.9 Acute upper respiratory infection, unspecified (principal); E11.9 Type 2 diabetes mellitus without complications; J44.9 Chronic obstructive pulmonary disease, unspecified; E78.5 Hyperlipidemia, unspecified; Z86.73 Personal history of transient ischemic attack (TIA), and cerebral infarction without residual deficits
CPT/HCPCS: 99213; G0463

== ENCOUNTER 2022-12-03 17:12 | Emergency (ER) | payer OTHER, SELFPAY ==
[2022-12-03 17:17] VITALS: BP 149/76; PULSE 77; RESP 20; TEMP 37.1; O2SAT 91
--- NOTE | 2022-12-03 19:24 | PC.NURSE ---
Pt approached triage desk and states Im not staying, Ill get ahold of my doctor tomorrow . Pt educated of risks of leaving before seeing provider, verbalized understanding. Pt ambulated out of ED with steady gait, in no obvious distress.
== END 2022-12-03 19:51 | disposition left against medical advice (07) ==
LOC: ANHED 19:30
PROVIDERS: PCP Internal Medicine
DX: R10.31 Right lower quadrant pain (principal)
CPT/HCPCS: 99199

== ENCOUNTER 2022-12-12 07:25 | Outpatient (CLI) | payer OTHER, SELFPAY ==
--- NOTE | ~2022-12-12 | XR_ITS ---
XR thoracic spine 3V 12/12/2022 08:20 Indication: Sciatica Procedure: 3 views thoracic spine Comparison: Cervical spine series dated 09/09/2012 Findings: Vertebral body heights are maintained. No paraspinal soft tissue abnormality. No acute fracture, subluxation or dislocation. There are prominent marginal osteophytes at multiple l evels. There is disc narrowing at multiple lower thoracic spine levels. There is mild dextrocurvature of the thoracic spine. There is atherosclerosis of the aorta. There are cholecystectomy clips. Impression: 1: Moderate thoracic spondylosis. Reviewed, dictated and finalized at location B. Impression: 1: Moderate thoracic spondylosis.
--- NOTE | ~2022-12-12 | XR_ITS ---
EXAMINATION: XR lumbar spine min 4V DATE: 12/12/2022 08:20 INDICATION: Lumbago with sciatica, left-sided. TECHNIQUE: 5 views of lumbar spine were obtained. COMPARISON: Lumbar spine radiographs 07/01/2017, MRI 01/09/2022 FINDINGS: There is 4 mm anterolisthesis of L4 on L5. There is mild chronic anterior wedging of T12 ve rtebral body. There is severely decreased disc height at T10-T11, T11-T12, and L3-L4, mildly decrease d disc height at L4-L5, and severely decreased disc height at L5-S1. There is interbody fusion at L5- S1. There is severe bilateral facet joint osteoarthritis from L2-L3 through L5-S1. There are surgical clips in the abdomen. IMPRESSION: 1. Severe lumbar spondylosis. Reviewed, dictated and finalized at location A.
--- NOTE | ~2022-12-12 | CT_ITS ---
EXAMINATION: CT abdomen pelvis w con DATE: 12/12/2022 08:32 INDICATION: Unspecified abdominal pain. TECHNIQUE: Computed tomography (CT) of the abdomen and pelvis was performed with 100 mL Omnipaque 350 intravenous contrast. Automated exposure control and iterative reconstruction technique were employe d. The dose-length product was 1378.24 mGy-cm. COMPARISON: CT abdomen and pelvis 02/13/2015 FINDINGS: The visualized portions of the lung bases demonstrate mild atelectasis. No pleural effusion . Cardiomegaly is noted. No pericardial effusion. There are surgical clips around the proximal stomac h. The liver is normal. There are changes of cholecystectomy. The spleen is small. The pancreas and a drenal glands are normal. There is cortical thinning of the kidneys. There are cysts in the kidneys i ncluding peripelvic cysts measuring up to 3.0 cm on the right. There are no dilated loops of bowel. T he appendix is not visualized. There is calcified atherosclerosis of the aorta and many of the other arteries. There are no pathologically enlarged lymph nodes. There is no free intraperitoneal fluid. T here is severe thoracic and lumbar spondylosis. IMPRESSION: 1. No etiology for the patient's symptoms. Reviewed, dictated and finalized at location A.
== END 2022-12-12 07:26 | disposition home or self-care (01) ==
PROVIDERS: PCP Family Medicine; Visit Provider Nurse Practitioner Family
DX: R10.9 Unspecified abdominal pain (principal); M54.42 Lumbago with sciatica, left side
CPT/HCPCS: 72072; 72110; 74177; Q9967

== ENCOUNTER 2022-12-29 14:17 | Emergency (ER) | payer OTHER, SELFPAY ==
[2022-12-29 14:30] VITALS: BP 113/89; PULSE 82; RESP 16; TEMP 35.7; O2SAT 97
--- NOTE | 2022-12-29 14:30 | ED.FEMALEGU ---
HPI - Female Genitourinary General Chief complaint: Urogenital-Female Stated complaint: uti Time Seen by Provider: 12/29/22 14:32 Source: patient, RN notes reviewed and old records reviewed Mode of arrival: ambulatory Limitations: no limitations History of Present Illness HPI Narrative: 77-year-old female presents to the [facility] with complaints of burning while urination since yesterday. Has a history of UTIs. Sees a urologist Denies any abdominal pain, chest pain. No shortness of breath. Denies fevers. Denies any back pain. Related Data Home Medications Medication Instructions Recorded Confirmed cholecalciferol (vitamin D3) 50 50 mcg PO DAILY 12/05/21 10/10/22 mcg (2,000 unit) capsule aspirin 81 mg chewable tablet 81 mg PO DAILY 10/03/22 10/10/22 gabapentin 100 mg capsule 300 mg PO BID 10/10/22 10/10/22 oxybutynin chloride 10 mg 10 mg PO DAILY 11/05/22 tablet,extended release 24 hr trazodone 50 mg tablet mg 12/29/22 Allergies Allergy/AdvReac Type Severity Reaction Status Date / Time No Known Allergies Allergy Verified 12/29/22 14:19 Review of Systems Review of Systems: All systems reviewed & are unremarkable except as noted in HPI and below Constitutional: Constitutional: Reports no additional constitutional complaints Eyes: Eyes: Reports no additional eye complaints ENT: Reports system reviewed and no additional complaints, except as documented Cardiovascular: Cardiovascular: Reports no additional cardiovascular complaints, Denies chest pain and Denies dyspnea Respiratory: Respiratory: Reports no additional respiratory complaints, Denies chest congestion, Denies cough and Denies dyspnea Gastrointestinal: Gastrointestinal: Reports no additional gastrointestinal complaints, Denies abdominal pain, Denies nausea and Denies vomiting Genitourinary: Genitourinary: Reports as per HPI Musculoskeletal: Musculoskeletal: Reports no additional musculoskeletal complaints Integumentary/Breasts: Skin/Breast: Reports system reviewed and no additional complaints, except as docu Neurologic: Reports system reviewed and no additional complaints, except as documented Psychiatric: Psychiatric: Reports no additional psychiatric complaints Allergic/Immunologic: Allergic/Immunologic: Reports no additional allergic/immunologic complaints PMFSH Past Medical History Medical History Anxiety Arthritis Asthma Carpal tunnel syndrome Chronic GERD COPD (chronic obstructive pulmonary disease) Degenerative disc disease, lumbar Diabetes Hiatal hernia Hyperlipidemia Hypertension Incisional hernia Mitral valve prolapse Osteoporosis TIA (transient ischemic attack) Surgical History Surgical History H/O sinus surgery H/O: hysterectomy History of carpal tunnel release of both wrists History of cholecystectomy History of incisional hernia repair History of repair of hiatal hernia History of splenectomy Family History Family History Mother Heart disease Sibling Family history of emphysema Cancer Father Family history of heart disease in male family member before age 55 Lung cancer Other Family history of cardiovascular disease Social History Social History Smoking status: Never smoker Alcohol intake: current Drinks per week: 2 Alcohol use details: rarely Substance use: never Substance use type: does not use Lack of Transportation: No Lack of Food: Never True Current Housing: I Have Housing Concerned About Future Housing: No Difficulty Paying Gas/Electric Bills: No Difficulty Paying for Meds: No Currently Unemployed: No Education: High School Diploma/GED Difficulty w/ Childcare or Family Care: No Living arrangements: with family Additional living a
== END 2022-12-29 15:00 | disposition home or self-care (01) ==
PROVIDERS: Emergency Provider Nurse Practitioner; PCP Family Medicine
DX: N30.01 Acute cystitis with hematuria (principal); M19.90 Unspecified osteoarthritis, unspecified site; J44.9 Chronic obstructive pulmonary disease, unspecified; E11.9 Type 2 diabetes mellitus without complications; E78.5 Hyperlipidemia, unspecified; I10 Essential (primary) hypertension; I34.1 Nonrheumatic mitral (valve) prolapse; M81.0 Age-related osteoporosis without current pathological fracture; Z86.73 Personal history of transient ischemic attack (TIA), and cerebral infarction without residual deficits; Z79.82 Long term (current) use of aspirin
CPT/HCPCS: 81003; 87077; 87086; 87186; 99213; G0463

== ENCOUNTER 2023-01-23 20:46 | Emergency (ER) | payer OTHER, SELFPAY ==
[2023-01-23] VITALS (12 sets, daily range): BP systolic 112–160; BP diastolic 45–77; PULSE 44–76; RESP 11–24; O2SAT 88–99
--- NOTE | ~2023-01-23 | CT_ITS ---
CT ANGIOGRAM NECK AND HEAD History: Vertigo. Technique: Axial noncontrast imaging of the brain was performed. Serial spiral axial images through t he head and neck were then obtained during arterial phase IV injection of 100 cc of Omnipaque 350. 3- D postprocessing and MIP images were then reconstructed on the remote workstation. Dose reduction richard hnique was used on this scan by utilizing automated exposure control and iterative reconstruction richard hnique. The dose-length product (DLP) was 1714.34 mGy-cm. CTA neck findings: Bilateral vertebral arteries are patent. Bilateral common carotid, internal carot id, and external carotid arteries are patent. No large vessel occlusion. No stenosis or aneurysm. The proximal right internal carotid artery demonstrates 0% stenosis relative to the normal distal artery lumen diameter. The proximal left internal carotid artery demonstrates 0% stenosis relative to the n ormal distal artery lumen diameter. CTA head findings: Distal vertebral arteries, basilar artery, and posterior cerebral arteries are pat ent. Distal internal carotid arteries, middle cerebral arteries, and anterior cerebral arteries are p atent. No large vessel occlusion. No stenosis or aneurysm. Axial noncontrast imaging of the brain is unremarkable. No intracranial hemorrhage, mass lesion, or a cute infarct seen. Ventricles and subarachnoid spaces are unremarkable. Impression: Unremarkable exam. Reviewed, dictated and finalized at location M. Impression: Unremarkable exam.
--- NOTE | ~2023-01-23 | XR_ITS ---
Portable chest x-ray Comparison: 03/21/2021 Clinical History: Cough Findings: Lungs are clear, without focal consolidation or pleural effusion. Cardiomediastinal silho uette is stable. Bones and soft tissues are unremarkable. Impression: Clear lungs. Reviewed, dictated and finalized at location . Impression: Clear lungs.
--- NOTE | 2023-01-23 20:50 | ECG_ITS ---
Measurements Intervals [place] Rate: 41 P: 50 MO: 219 QRS: -48 QRSD: 102 T: -3 QT: 481 QTc: 397 Interpretive Statements SINUS BRADYCARDIA WITH SINUS ARRHYTHMIA POSSIBLE LEFT ATRIAL ENLARGEMENT [-0.1mV P WAVE IN V1/V2] MARKED LEFT AXIS DEVIATION [QRS AXIS < -30] POSSIBLE LEFT VENTRICULAR HYPERTROPHY [VOLTAGE CRITERIA PLUS LAE OR QRS WIDENING] COMPARED TO ECG 03/21/2021 06:46:46 SINUS BRADYCARDIA NOW PRESENT SINUS ARRHYTHMIA NOW PRESENT Electronically Signed On 01-24-2023 11:45:39 CDT by Kalyani Harris M.D.
[2023-01-23 21:50] LABS: Basophils Percent Auto 0.2 % (0.2-1.2); Eosinophils Absolute Auto 0.5 K/mm3 (0-0.3); Eosinophils Percent Auto 3.8 % (0-4.4); Hematocrit 44.1 % (37.0-47.0); Hemoglobin 14.3 g/dL (12.0-15.0); Immature Granulocyte Absolute 0.06 K/mm3 (0.00-0.031); Immature Granulocyte Percent A 0.5 % (0-0.5); Lymphocytes Absolute Auto 3.98 K/mm3 (0.9-3.2); Lymphocytes Percent Auto 29.9 % (18.3-44.2); Mean Corpuscular HGB Conc 32.4 g/dl (32-36); Mean Corpuscular Hemoglobin 31.2 pg (26-34); Mean Corpuscular Volume 96.1 fl (80-100); Mean Platelet Volume 10.6 fl (7.4-10.4); Monocytes Absolute Auto 1.1 K/mm3 (0.1-0.6); Monocytes Percent Auto 8.3 % (2.6-8.5); Neutrophils Absolute Auto 7.7 K/mm3 (1.3-6.7); Neutrophils Percent Auto 57.3 % (45.5-73.1); Platelet Count Result 284 k/mm3 (150-375); Red Blood Count 4.59 M/mm3 (4.2-5.4); Red Cell Distribution Width 14.6 % (11.5-14.5); White Blood Count 13.3 K/mm3 (4.5-10.0)
[2023-01-23 21:53] LABS: Alanine Aminotransferase 18 U/L (6-35); Albumin Level 3.6 g/dL (3.5-5.1); Alkaline Phosphatase 89 U/L (38-126); Anion Gap 0 mmol/L (8-16); Aspartate Amino Transferase 20 U/L (14-36); Bilirubin,Total 1.6 mg/dL (0.2-1.3); Blood Urea Nitrogen 17 mg/dL (7-17); Calcium 8.9 mg/dL (8.4-10.2); Carbon Dioxide 33 mmol/L (22-30); Chloride 107 mmol/L (98-107); Estimated CRCL calculation 49 ml/min; Estimated Glomerular Filt Rate > 60; Glucose 104 mg/dL (65-110); Potassium 4.1 mmol/L (3.4-5.0); Sodium 140 mmol/L (137-145)
--- NOTE | 2023-01-23 23:13 | ED.DIZZY ---
HPI - Dizziness General Chief Complaint: Dizziness <Harmony Webb PA-C - Last Filed: 01/24/23 03:45> Stated Complaint: dizziness <Harmony Webb PA-C - Last Filed: 01/24/23 03:45> Time Seen by Provider: 01/23/23 22:48 <Harmony Webb PA-C - Last Filed: 01/24/23 03:45> History of Present Illness HPI Narrative: 77 y/o F with history of hypertension, COPD, hyperlipidemia, GERD, TIA reports for evaluation of vertigo that started at 7 AM this morning with associated right-sided neck pain. Patient patient states she feels like the room is spinning and is unable to walk without holding on to something for stability. Vertigo is worse with sudden head movements, especially when she looks left. She states she went to her PCP this morning at 11 AM for the vertigo, was prescribed meclizine and advised to go to the ED if she did not have improvement. She reports taking a dose of meclizine at 12:30 PM and another dose at 7 PM without improvement. She reports right-sided neck pain that started today that is worse with movement along with blurred vision. She denies diplopia, loss of vision, headache, neck or head trauma, chest pain or shortness of breath, palpitations, ear pain, focal numbness or weakness. She does report an intermittent dry cough. States she had an episode of vertigo approximately 8 years ago, no vertigo since. <Harmony Webb PA-C - Last Filed: 01/24/23 03:45> Related Data Home Medications: Home Medications Medication Instructions Recorded Confirmed cholecalciferol (vitamin D3) 50 50 mcg PO DAILY 12/05/21 10/10/22 mcg (2,000 unit) capsule aspirin 81 mg chewable tablet 81 mg PO DAILY 10/03/22 10/10/22 oxybutynin chloride 10 mg 10 mg PO DAILY 11/05/22 tablet,extended release 24 hr michael seed oil-omega 3-6-9 1,000 mg cap PO 01/23/23 (580 mg) capsule gabapentin 100 mg capsule 300 mg PO TID 01/23/23 <KVNG Liu Last Filed: 01/24/23 03:45> Allergies/Adverse Reactions: Allergies Allergy/AdvReac Type Severity Reaction Status Date / Time No Known Allergies Allergy Verified 01/23/23 11:28 <Harmony Webb PA-C - Last Filed: 01/24/23 03:45> Review of Systems Review of Systems: CONSTITUTIONAL: Denies fever, chills EYES: Denies visual changes, redness, or discharge. ENT: Denies rhinorrhea, congestion, sore throat, or otalgia. CARDIOVASCULAR: Denies chest pain, palpitations, or edema. RESPIRATORY: Denies cough or dyspnea. GASTROINTESTINAL: Denies abdominal pain, nausea, vomiting, or diarrhea. GENITOURINARY: Denies dysuria or hematuria. SKIN: Denies rash or itching. MUSCULOSKELETAL: Denies back pain, joint pain, or myalgia. NEUROLOGIC: See HPI PSYCHIATRIC: Denies anxiety or depression. <Harmony Webb PA-C - Last Filed: 01/24/23 03:45> [facility] Past Medical History Medical History: Medical History Anxiety Arthritis Asthma Carpal tunnel syndrome Chronic GERD COPD (chronic obstructive pulmonary disease) Degenerative disc disease, lumbar Diabetes Hiatal hernia Hyperlipidemia Hypertension Incisional hernia Mitral valve prolapse Osteoporosis TIA (transient ischemic attack) <Harmony Webb PA-C - Last Filed: 01/24/23 03:45> Surgical History Surgical History: Surgical History H/O sinus surgery H/O: hysterectomy History of carpal tunnel release of both wrists History of cholecystectomy History of incisional hernia repair History of repair of hiatal hernia History of splenectomy <Harmony Webb PA-C - Last Filed: 01/24/23 03:45> Family History Family History: Family History Mother Heart disease Sibling Family history of emphysema Cancer Father Family history of heart disease in male family member before age 55 Lung cancer Ot
[2023-01-23 23:25] LABS: Appearance Urine Cloudy (Clear); Bacteria Urine 4+ /hpf; Bilirubin Urine Negative (Negative); Blood Urine Trace (Negative); Color Urine Yellow (Yellow); Glucose Urine UA Negative (Negative); Ketones Urine Negative (Negative); Leukocyte Esterase Ur Trace LEU/UL (Negative); Nitrate Urine Positive (Negative); Non Pathogenic Casts 0-2; Protein Urine Negative (Negative); Specific Grav Ur 1.013 (1.001-1.035); Squamous Epithelial Cell Urine Few /hpf (Few); pH Urine 6.5 (5.0-9.0)
[2023-01-23] MEDS: ONDANSETRON INJ 4 MG/2 ML VIAL IV PUSH (23:32)
[2023-01-23] MEDS: SODIUM CHLORIDE 0.9% IV 1,000 ML 999 ML IV CONT (23:32)
[2023-01-23 23:33] LABS: Add Urine Microscopic? YES
[2023-01-23] MEDS: MECLIZINE HCL 25 MG TABLET PO (23:37)
[2023-01-24] VITALS (15 sets, daily range): BP systolic 111–142; BP diastolic 63–79; PULSE 47–83; RESP 12–19; O2SAT 87–96
--- NOTE | 2023-01-24 00:02 | PC.NURSE ---
Provider aware of pts low heart rates. Pt is stable, alert, and oriented. Crash cart is placed outside of pt room.
== END 2023-01-24 03:56 | disposition home or self-care (01) ==
PROVIDERS: Emergency Medicine; Emergency Provider Physician Assistant; PCP Family Medicine
DX: N30.00 Acute cystitis without hematuria (principal); R42 Dizziness and giddiness; I10 Essential (primary) hypertension; J44.9 Chronic obstructive pulmonary disease, unspecified; E78.5 Hyperlipidemia, unspecified; Z86.73 Personal history of transient ischemic attack (TIA), and cerebral infarction without residual deficits
CPT/HCPCS: 36415; 70496; 70498; 71045; 80053; 81001; 85025; 87077; 87086; 87186; 93005; 96361; 96365; 96375; 99284; A9270; J0696; J2405; J7030; Q9967

== ENCOUNTER 2023-03-27 09:47 | Outpatient (CLI) | payer OTHER, SELFPAY ==
--- NOTE | ~2023-03-27 | XR_ITS ---
Right Shoulder Technique: AP and scapular Y views were obtained. Clinical History: Pain Findings: No fracture or dislocation is seen. Osseous alignment is anatomic. The glenohumeral and acr omioclavicular joint spaces are preserved. Soft tissues are unremarkable. Impression: Unremarkable right shoulder radiographs. Reviewed, dictated and finalized at [facility]. Impression: Unremarkable right shoulder radiographs.
--- NOTE | ~2023-03-27 | XR_ITS ---
Right Humerus Technique: AP and lateral views were obtained. Clinical History: Pain Findings: No fracture or dislocation is seen. Osseous alignment is anatomic. Visualized joint spaces are grossly preserved. Soft tissues are unremarkable. Impression: Unremarkable examination. No fracture or dislocation. Reviewed, dictated and finalized at location . Impression: Unremarkable examination. No fracture or dislocation.
== END 2023-03-27 09:48 | disposition home or self-care (01) ==
LOC: ANHIMG 09:50
PROVIDERS: PCP Nurse Practitioner Family; Visit Provider Nurse Practitioner Family
DX: M79.601 Pain in right arm (principal)
CPT/HCPCS: 73030; 73060

== ENCOUNTER 2023-04-02 13:48 | Outpatient (CLI) | payer OTHER, SELFPAY ==
--- NOTE | ~2023-04-02 | XR_ITS ---
EXAMINATION: XR_CERV2-3V_CR DATE: 04/02/2023 14:10 INDICATION: Neuralgia and neuritis, unspecified. TECHNIQUE: 4 views of cervical spine were obtained. COMPARISON: Cervical spine radiographs 09/09/2012 FINDINGS: There is 3 degrees levocurvature of cervical spine. Vertebral body heights are normal. Ther e is mildly decreased disc height at C3-C4, moderately decreased disc height at C4-C5, mildly decreas ed disc height at C5-C6, and moderately decreased disc height at C6-C7. There is multilevel uncoverte bral joint osteoarthritis, severe bilaterally at C4-C5 and C6-C7 and on the left at C5-C6. There is m ultilevel severe facet joint osteoarthritis. There is mild central canal stenosis at C3-C4, C4-C5, C5 -C6, and C6-C7. No prevertebral soft tissue swelling. IMPRESSION: 1. Moderate cervical spondylosis. Reviewed, dictated and finalized at location A.
== END 2023-04-02 13:49 | disposition home or self-care (01) ==
PROVIDERS: PCP Nurse Practitioner Family; Visit Provider Nurse Practitioner Family
DX: M79.2 Neuralgia and neuritis, unspecified (principal); M43.02 Spondylolysis, cervical region
CPT/HCPCS: 72040

== ENCOUNTER 2023-04-20 13:29 | Outpatient (CLI) | payer OTHER, SELFPAY ==
--- NOTE | ~2023-04-20 | MR_ITS ---
EXAMINATION: MR cervical spine wo con DATE: 04/20/2023 14:04 INDICATION: Spondylolysis, cervical region. TECHNIQUE: Magnetic resonance imaging (MRI) of the cervical spine was performed without intravenous c ontrast. Sequences included sagittal T2-weighted FSE, sagittal T2-weighted FS FSE, sagittal T1-weight ed FSE, axial MERGE, and axial T2-weighted FSE. COMPARISON: Cervical spine radiographs 04/02/2023 FINDINGS: There is kyphosis of cervical spine. Vertebral body heights are normal. There is moderately decreased disc height at C3-C4 and C4-C5, mildly decreased disc height at C5-C6, and moderately decr eased disc height at C6-C7. The spinal cord signal intensity is normal. The following disc levels are specifically discussed: C2-C3: The disc does not extend beyond the endplate margin. There is no uncovertebral joint osteoarth ritis. There is severe bilateral facet joint osteoarthritis. There is mild right neural foraminal lola nosis. There is no central canal stenosis. C3-C4: The disc is bulging. There is moderate right and severe left uncovertebral joint osteoarthriti s. There is severe bilateral facet joint osteoarthritis. There is mild right and moderate left neural foraminal stenosis. There is mild central canal stenosis. C4-C5: The disc is bulging. There is severe bilateral uncovertebral joint osteoarthritis. There is se joe right and moderate left facet joint osteoarthritis. There is moderate right and mild left neural foraminal stenosis. There is mild central canal stenosis. C5-C6: This is bulging. There is severe bilateral uncovertebral joint osteoarthritis. There is severe right and moderate left facet joint osteoarthritis. There is mild bilateral neural foraminal stenosi s. There is mild central canal stenosis. C6-C7: The disc is bulging. There is severe bilateral uncovertebral joint osteoarthritis. There is mi ld right and severe left facet joint osteoarthritis. There is mild bilateral neural foraminal stenosi s. There is mild central canal stenosis. C7-T1: The disc does not extend beyond the endplate margin. There is no uncovertebral joint osteoarth ritis. There is severe bilateral facet joint osteoarthritis. There is mild bilateral neural foraminal stenosis. There is no central canal stenosis. IMPRESSION: 1. Moderate cervical spondylosis. Reviewed, dictated and finalized at location A.
== END 2023-04-20 13:30 | disposition home or self-care (01) ==
PROVIDERS: PCP Nurse Practitioner Family; Visit Provider Nurse Practitioner Family
DX: M43.02 Spondylolysis, cervical region (principal); M47.812 Spondylosis without myelopathy or radiculopathy, cervical region; M79.2 Neuralgia and neuritis, unspecified
CPT/HCPCS: 72141

== ENCOUNTER 2023-05-09 13:30 | Outpatient (RCR) | payer OTHER, SELFPAY ==
--- NOTE | 2023-04-11 16:41 | OPREHPOC ---
Outpatient Therapy Plan of Care This is a Multidisciplinary Plan of Care that may contain components documented by all disciplines (PT, OT, and ST.) PT Problem 1 PT Problem #1 Knowledge Deficit PT Goal 1 Goal Pt to be IND with issued HEP Target Visit 4 PT Problem 2 PT Problem #2 Pain PT Goal 1 Goal Pt to report neck pain no greater than 3/10 in the last week Target Visit 4 PT Goal 2 Goal Pt to report 75% improvement in overall symptoms Target Visit 4 PT Problem 3 PT Problem #3 Impaired Sensation PT Goal 1 Goal Pt declined altered sensation in her R arm in the last week Target Visit 4 PT Problem 4 PT Problem #4 Impaired Range of Motion PT Goal 1 Goal Pt to improve eden lateral flexion ROM to 30 deg ea side Target Visit 4 PT Goal 2 Goal Pt to improve R shoulder active flexion ROM to 120 deg Target Visit 4
--- NOTE | 2023-04-11 16:41 | PTOPEVAL1 ---
Assessment and note entered by Hollis Lofton, PT, DPT Evaluation Information Assessment Status Evaluation Diagnosis R arm pain Onset 1 month Subjective Information Pt reports radicular pain that goes from the top of her shoulder to the hands and will cause her fingers to tingle. Pt reports a 1 month long history of pain without a NORM. She reports intermittent R sided neck pain. She states a heating pad helps to ease her pain. Reported Pain Level Pain Score 5: Self Report Assessment PT Clinical Summary Liz presents to therapy today for her initial evaluation with a diagnosis of R arm pain. Today she demonstrates decreased cervical ROM and R UE ROM both limited by pain. She demonstrates postural deviations including forward shoulders, an increased thoracic kyphosis, and a forward head . She reports altered sensation down into her fingers but cervical distraction relieves this. Skilled therapy services are indicated to address the deficits noted above, to manage pain, to improve ROM, to limited altered sensation, and to return to PLOF. Plan of Care Interventions Electrical Stimulation,Hot Pack/Cold Pack,Manual Therapy,Neuro Re-education,Patient/Caregiver Educati,Therapeutic Activities,Therapeutic Exercise PT Services Indicated Yes Treatment Frequency and 1x/wk for 4 visits Duration These treatments will address the objective and functional deficits as defined above. The patient will be advanced safely and appropriately in order for the patient to progress towards his/her prior level of function. Additional exercises will be introduced and as well as a comprehensive home exercise program upon discharge, if needed, ?to ensure carryover of functional gains achieved in the clinic. This treatment plan has been reviewed and agreement upon by the patient.
--- NOTE | 2023-05-09 14:01 | PTOPDC ---
Assessment and note entered by Hollis Lofton, PT, DPT Evaluation Information Assessment Status Discharge Diagnosis R arm pain Onset 1 month Subjective Information Pt states overall things are doing well. She states her arm will still hurt periodically but with heat and exercise this pain decreases. She states she things her pain is caused from the way she sleeps cause her pain is worse in the morning. She reports 90% improvement in overall symptoms. Reported Pain Level Pain Score 0: Self Report Assessment PT Clinical Summary Liz presents to therapy today for her progress report following 5 visits of skilled therapy to treat her diagnosis of R arm pain. Today she demonstrates improved cervical and R shoulder ROM in all directions that is equal to her L side and pain free. She has met all of her therapy goals at this time and will be discharged to continue her HEP.
== END 2023-05-09 15:53 | disposition home or self-care (01) ==
LOC: ANHGOSHPT 13:30
PROVIDERS: PCP Nurse Practitioner Family; Visit Provider Nurse Practitioner Family
DX: M79.601 Pain in right arm (principal)
CPT/HCPCS: 97110; 97140; 97161; 97530

== ENCOUNTER → 2023-06-05 12:04 | Outpatient (CLI) | payer OTHER, SELFPAY ==
--- NOTE | ~2023-06-05 | XR_ITS ---
EXAMINATION: XR ribs BI 3V w CXR 2V INDICATION: Unspecified fall TECHNIQUE: PA and lateral views of the chest and 3 views of the bilateral ribs were obtained. COMPARISON: 01/23/2023 FINDINGS: The lungs are free of acute opacities. No pleural effusion or pneumothorax. The cardiomedia stinal silhouette is normal. There is mild thoracic spondylosis. No displaced rib fracture is identif ied. Surgical clips in the right upper quadrant are likely from prior cholecystectomy. Surgical clips are also noted in the left upper quadrant. IMPRESSION: 1. No acute cardiopulmonary abnormality or evidence of displaced rib fracture. Reviewed, dictated and finalized at location B. 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
== END ==
PROVIDERS: PCP Nurse Practitioner Family; Visit Provider Nurse Practitioner Family
DX: R05.9 Cough, unspecified (principal); W19.XXXA Unspecified fall, initial encounter
CPT/HCPCS: 71046; 71110

== ENCOUNTER 2023-08-06 09:00 | Outpatient (RCR) | payer OTHER, SELFPAY ==
--- NOTE | 2023-07-09 12:34 | PTOPEVAL1 ---
Assessment and note entered by Benson Fraser, PT Evaluation Information Assessment Status Evaluation Diagnosis Unspecified Fall, Gait abnormality, LE weakness Onset April 2023 Subjective Information Reports that she has had 3 falls in the past 6 weeks. Feels that on the falls her feet get stuck but her body goes forward. Denies any change of medication or lifestyle change that may be affecting this. Reports that she has had diagnosis of arthritis in several areas of her body. She is receiving pain management injections approximately every 3 months. She only has a single step in her home and struggles on it at times if she tried to step up with her right foot. In all of her falls she reports only a R lateral hip bruise as injury. She regularly hurts dueto the arthritis. Reported Pain Level Pain Score 3: Self Report Assessment PT Clinical Summary Patient is demonstrating deficits in hip/core strength with notable fall risk indicated by both Tinetti and 2 minute walk test. She will benefit from skilled therapy to address these deficits to improve safety and mobility for gross motor strength and ADL performance. Plan of Care Interventions Gait Training,Manual Therapy,Neuro Re-education, Patient/Caregiver Education,Therapeutic Activities, Therapeutic Exercise PT Services Indicated Yes Treatment Frequency and 2x/week for 4 weeks Duration These treatments will address the objective and functional deficits as defined above. The patient will be advanced safely and appropriately in order for the patient to progress towards his/her prior level of function. Additional exercises will be introduced and as well as a comprehensive home exercise program upon discharge, if needed, ?to ensure carryover of functional gains achieved in the clinic. This treatment plan has been reviewed and agreement upon by the patient.
--- NOTE | 2023-07-09 12:34 | OPREHPOC ---
Outpatient Therapy Plan of Care This is a Multidisciplinary Plan of Care that may contain components documented by all disciplines (PT, OT, and ST.) PT Problem 1 PT Problem #1 Knowledge Deficit PT Goal 1 Goal Independent with HEP Target Visit 4 PT Problem 2 PT Problem #2 Impaired Strength PT Goal 1 Goal Improve eden hip flexion strength to 4+/5 to improve foot clearance with gait Target Visit 8 PT Goal 2 Goal Improve eden hip abduction strength to 4/5 to improve lateral stability with gait and functional activity Target Visit 8 PT Problem 3 PT Problem #3 Impaired Balance PT Goal 1 Goal Improve Tinetti score by 5 points indicating reduced fall risk with ADLs Target Visit 8 PT Goal 2 Goal Improve 2 minute walk test by 50 feet to improve gait speed and reduce fall risk Target Visit 8
--- NOTE | 2023-08-06 09:21 | OPREHPOC ---
Outpatient Therapy Plan of Care This is a Multidisciplinary Plan of Care that may contain components documented by all disciplines (PT, OT, and ST.) PT Problem 1 PT Problem #1 Knowledge Deficit PT Goal 1 Goal Independent with HEP Target Visit 4 Progress Met PT Problem 2 PT Problem #2 Impaired Strength PT Goal 1 Goal Improve eden hip flexion strength to 4+/5 to improve foot clearence with gait Target Visit 8 Progress Met PT Goal 2 Goal Improve eden hip abduction strength to 4/5 to improve lateral stability with gait and functional activity Target Visit 8 Progress Partially Met PT Problem 3 PT Problem #3 Impaired Balance PT Goal 1 Goal Improve Tinetti score by 5 points indicating reduced fall risk with ADLs Target Visit 8 Progress Partially Met PT Goal 2 Goal Improve 2 minute wal test by 50 feet to improve gait speed and reduce fall risk Target Visit 8 Progress Met
--- NOTE | 2023-08-06 09:21 | PTOPDC ---
Assessment and note entered by Darleen Lipscomb DPT Evaluation Information Assessment Status Discharge Diagnosis Unspecified Fall, Gait abnormality, LE weakness Onset April 2023 Subjective Information Pt reports she has been feeling good with therapy, no falls since starting therapy and feels stronger. Reports she feels confident discharging from therapy today and will continue HEP independently. Reported Pain Level Pain Score 0: Self Report Assessment PT Clinical Summary The patient has made excellent progress in therapy . She reports no falls since starting therapy. She demonstrates improved LE strength, improved walking speed, and improved Tinetti balance score to 21. Due to her progress and independence with HEP, plan for discharge at this time. She has been educated to follow up with MD and/or PT as needed . Plan of Care PT Services Indicated No
== END 2023-08-06 11:08 | disposition home or self-care (01) ==
LOC: ANHGOSHPT 09:00
PROVIDERS: PCP Nurse Practitioner Family; Visit Provider Nurse Practitioner Family
DX: R26.89 Other abnormalities of gait and mobility (principal); W19.XXXD Unspecified fall, subsequent encounter
CPT/HCPCS: 97014; 97110; 97112; 97116; 97140; 97161; 97530; G0283

== ENCOUNTER → 2023-08-29 09:28 | Outpatient (CLI) | payer OTHER, SELFPAY ==
--- NOTE | ~2023-08-29 | XR_ITS ---
XR knee RT min 4V DATE: 08/29/2023 10:17 INDICATION: Right knee pain TECHNIQUE: 4 views COMPARISON: None FINDINGS: Osteopenia. There is prominent loss of joint space at the medial compartment with near [id number]. Lateral compartment joint space is well preserved. Mild periarticular spurring at the patellofemoral joint. Osteopenia. No fracture or dislocation, periosteal reaction or bone destruction. No radiopaque intra-articular loose body or chondrocalcinosis is detected. IMPRESSION: Osteopenia Osteoarthritis affecting particularly the medial compartment, to a lesser extent patellofemoral constanza rtment Reviewed, dictated and finalized at location L. 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
== END ==
PROVIDERS: PCP Nurse Practitioner Family; Visit Provider Nurse Practitioner Family
DX: M17.11 Unilateral primary osteoarthritis, right knee (principal)
CPT/HCPCS: 73564

== ENCOUNTER 2023-11-12 08:00 | Outpatient (RCR) | payer OTHER, SELFPAY ==
--- NOTE | 2023-10-16 09:05 | OPREHPOC ---
Outpatient Therapy Plan of Care This is a Multidisciplinary Plan of Care that may contain components documented by all disciplines (PT, OT, and ST.) PT Problem 1 PT Problem #1 Knowledge Deficit PT Goal 1 Goal Pt to be IND with issued HEP Target Visit 8 PT Problem 2 PT Problem #2 Pain PT Goal 1 Goal Pt to report knee pain no greater than 3/10 in the last week Target Visit 8 PT Problem 3 PT Problem #3 Impaired Gait PT Goal 1 Goal Pt to demonstrate neutral pelvis alignment during ambulation. Target Visit 8 PT Goal 2 Goal Pt to improve 2 min walk distance from 340ft to 400ft. Target Visit 8 PT Problem 4 PT Problem #4 Impaired Safety Awareness PT Goal 1 Goal Pt to report a month without her knee giving out on her Target Visit 8 PT Goal 2 Goal Pt to report no falls in the last month. Target Visit 8
--- NOTE | 2023-10-16 09:05 | PTOPEVAL1 ---
Assessment and note entered by Hollis Lofton, PT, DPT Evaluation Information Assessment Status Evaluation Diagnosis R knee pain Subjective Information Pt reports a history of R knee pain on and off for many years. She was a patient here less than 2 months ago for recurrent falls. She states she is debating getting a knee replacement. She states her knee will go out on her while doing daily tasks and will be sore for 3-4 days, then is usually good for a while after that. Reported Pain Level Pain Score 0: Self Report Assessment PT Clinical Summary Liz presents to therapy today for her initial evaluation with a diagnosis of R knee pain. Today she demonstrates active knee ROM and strength that is nearly equal eden. She does demonstrates increased hip weakness on the L side contributing to gait deviations. Skilled therapy services are indicated to address the deficits noted above, to improve stability, and to improve overall functional mobility. Plan of Care Interventions Electrical Stimulation,Gait Training,Hot Pack/Cold Pack,Manual Therapy,Neuro Re-education,Patient/ Caregiver Educati,Therapeutic Activities, Therapeutic Exercise PT Services Indicated Yes Treatment Frequency and 1x/wk for 8 visits Duration These treatments will address the objective and functional deficits as defined above. The patient will be advanced safely and appropriately in order for the patient to progress towards his/her prior level of function. Additional exercises will be introduced and as well as a comprehensive home exercise program upon discharge, if needed, ?to ensure carryover of functional gains achieved in the clinic. This treatment plan has been reviewed and agreement upon by the patient.
--- NOTE | 2023-11-12 08:48 | PTOPDC ---
Assessment and note entered by Hollis Lofton, PT, DPT Evaluation Information Assessment Status Discharge Diagnosis R knee pain Subjective Information Pt states she is not having knee pain any more during her day to day activities. She declines any falls or her knee giving out in the last month. States her back pain has also improved. Reported Pain Level Pain Score 0: Self Report Assessment PT Clinical Summary Liz presents to therapy today for her progress report following 4 visits of skilled therapy to treat her diagnosis of R knee pain. Today she demonstrates improving but still weakened hip strength and stability. She continues to ambulate with a lateral trunk lean but reports improved stability. She has met or progressed well towards her therapy goals and no longer requires skilled services. She will be discharged at this time. Plan of Care PT Services Indicated No
== END 2023-11-12 10:09 | disposition home or self-care (01) ==
LOC: ANHGOSHPT 08:00
PROVIDERS: PCP Nurse Practitioner Family; Visit Provider Orthopaedic Surgery
DX: M17.11 Unilateral primary osteoarthritis, right knee (principal)
CPT/HCPCS: 97110; 97112; 97161; 97530

== ENCOUNTER 2023-12-19 06:55 | Outpatient (CLI) | payer OTHER, SELFPAY ==
--- NOTE | 2023-12-19 | ECG_ITS ---
SEE SCANNED COPY FOR CONFIRMED REPORT MTDD
== END 2023-12-19 06:56 | disposition home or self-care (01) ==
PROVIDERS: PCP Nurse Practitioner Family; Visit Provider Nurse Practitioner Family
DX: R06.02 Shortness of breath (principal)
CPT/HCPCS: 93005

== ENCOUNTER 2024-06-29 08:18 | Outpatient (CLI) | payer OTHER, SELFPAY | END 2024-06-29 08:19 | disposition home or self-care (01) | PROVIDERS: PCP Nurse Practitioner Family; Visit Provider Nurse Practitioner Family | DX: R00.2 Palpitations (principal); R06.02 Shortness of breath | CPT/HCPCS: 93242 ==

== ENCOUNTER 2024-12-09 13:44 | Outpatient (CLI) | payer OTHER, SELFPAY ==
--- NOTE | ~2024-12-09 | XR_ITS ---
EXAMINATION: XR chest 2V 12/09/2024 14:52 INDICATION: Abdominal pain. PROCEDURE: 2 view chest COMPARISON: Comparison to multiple prior studies sequentially, with oldest reviewed study dated 03/07. FINDINGS: The lungs are clear. The cardiomediastinal silhouette is within normal limits. There are no pleural effusions. There is no pneumothorax suspected. IMPRESSION: 1: NO ACUTE CARDIOPULMONARY DISEASE. Reviewed, dictated and finalized at location A.
--- NOTE | ~2024-12-09 | XR_ITS ---
XR_[id number]_CR 12/09/2024 14:52 Indication: Abdominal pain Procedure: 3 views of the abdomen Comparison: No prior studies for comparison. Findings: Moderately distended gas-filled small bowel and colon. There are surgical changes in the up per abdomen. No transition site is identified. Lung bases unremarkable. No abnormal calcifications. N o evidence for organomegaly. There is advanced thoracic and lumbar spondylosis. Symmetric degenerativ e changes of the hips. Impression: 1: Moderately distended small bowel and colon, likely ileus. Reviewed, dictated and finalized at location A. Impression: 1: Moderately distended small bowel and colon, likely ileus.
== END 2024-12-09 13:45 | disposition home or self-care (01) ==
LOC: MICIMG 13:45
PROVIDERS: PCP Nurse Practitioner Family; Visit Provider Nurse Practitioner Family
DX: K63.89 Other specified diseases of intestine (principal); R07.81 Pleurodynia
CPT/HCPCS: 71046; 74018; 74021

== ENCOUNTER 2024-12-11 12:49 | Outpatient (CLI) | payer OTHER, SELFPAY ==
--- NOTE | ~2024-12-11 | CT_ITS ---
EXAMINATION: CT abdomen pelvis w con DATE: 12/11/2024 13:10 INDICATION: Specified ileus TECHNIQUE: Computed tomography (CT) of the abdomen and pelvis was performed with 100 mL Omnipaque-350 intravenous contrast. Automated exposure control and iterative reconstruction technique were employe d. The dose-length product was 1381.30 mGy-cm. COMPARISON: 12/12/2022 FINDINGS: Mild discoid atelectasis in the left lower lobe. Heart size normal. No pericardial or pleural effusio n. Small sliding-type hiatal hernia with change of prior Brandon fundoplication. Cholecystectomy clips at the gallbladder fossa. There is mild to moderate bilateral renal atrophy with multiple bilateral peripelvic cysts. There 2 mm nonobstructing stones at the interpolar regions of both kidneys. Liver a nd bilateral adrenal glands are normal. There is moderate fatty atrophy of the pancreas. 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 Bowels are unremarkable with no abnormal wall thickening or obstruction. The uterus is not identified and has likely been surgica lly resected. No free intraperitoneal gas or fluid. No pathologically enlarged abdominal or pelvic ly mphadenopathy. Severe lumbar and moderate lower thoracic spondylosis with grade 1 anterolisthesis L4 on L5. IMPRESSION: 1. No acute intra-abdominal/pelvic process. 2. Bilateral nonobstructing nephrolithiasis. Reviewed, dictated and finalized at location A.
--- OUTSIDE RECORDS SUMMARY | 2024-12-11 12:59 | XMS_ITS | Referral Summary ---
Author Organization [facility] at the [facility] Address [address] [place] [address] Care Team Providers Care Silverware Washer Name Role Phone Tam Lott MD Unavailable [phone] Geoffrey Yan MD Primary Care Provider [phone] Allergies No known active allergies Medications pantoprazole DR (PROTONIX) 40 mg EC tablet 1 tablet (40 mg total) daily Active meloxicam (MOBIC) 15 mg tablet 15 mg daily Active Symbicort 80-4.5 mcg/actuation inhaler INL 2 PFS PO BID 02/17/2020 Active amLODIPine (NORVASC) 10 mg tablet 1 tablet (10 mg total) daily Active cholecalciferol (VITAMIN D-3) 1,000 unit capsule Take 1,000 Units by mouth daily 2 tabs Active clobetasoL (TEMOVATE) 0.05 % cream CHRIS EXT AA BID FOR 7 DAYS 03/17/2020 Active atorvastatin (LIPITOR) 20 mg tablet Take 1 tablet (20 mg total) by mouth nightly at bedtime 11/20/2023 Active gabapentin (NEURONTIN) 300 mg capsule Take 1 capsule (300 mg total) by mouth 4 (four) times a day Active buPROPion XL (WELLBUTRIN XL) 150 mg 24 hr tablet Take 1 tablet (150 mg total) by mouth every morning 11/27/2023 Active vibegron (Gemtesa) 75 mg tablet Take 75 mg by mouth daily Active topiramate (TOPAMAX) 25 mg tabletIndication s:Abnormal weight gain,Class 1 obesity due to excess calories without serious comorbidity with body mass index (BMI) of 34.0 to 34.9 in adult Take 1 tablet (25 mg total) by mouth 2 (two) times a day 60 tablet 2 12/06/2023 Active Active Problems Problem Noted Date Diagnosed Date Class 1 obesity due to exces s calories without serious comorbidity with body mass index (BMI) of 34.0 to 34.9 in adult 10/19/2021 Abnormal weight gain 10/19/2021 Nonrheumatic aortic valve insufficiency 03/16/20 20 Hypertension 03/16/2020 Social History Tobacco Use Types Packs/Day Years Used Date Smoking Tobacco: Never Smokeless Tobacco: Never Alcohol Use Standard Drinks/Week Comments Yes 0 (1 standard drink = 0.6 oz pur e alcohol) rarely AUDIT-C Answer Date Recorded Q1: How often do you have a drink containing alcohol? Never 12/06/2023 Q2: How many drinks containi ng alcohol do you have on a typical day when you are drinking? Patient does not drink Q3: How often do you have si x or more drinks on one occasion? 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 Care Teams Silverware Washer Relationship Specialty Start Date End Date Geoffrey Yan MD [address] [place] [address] PCP - General Family Practice 12/06/23 Tam Lott MD [address] [place] [address] Consulting Physician Cardiology 03/18/20
--- OUTSIDE RECORDS SUMMARY | 2024-12-11 12:59 | XMS_ITS ---
Author Name JOSH THACKER NP Address [address] [place] [address] Phone [phone] Organization [facility] Care Team Providers Care Vocational Rehabilitation Consultant Name Role Phone JOSH THACKER Unavailable [phone] Geoffrey Yan Unavailable [phone] Jennifer Posey Unavailable Unavailable Behzad Bernal Unavailable [phone] CATALINO CROOK Unavailable [phone] Reason for Referral Not Available Allergies, adverse reactions, alerts No known allergies History of medication use Medication Class Instructions Start Date End Date Tylenol Extra Strength 500 mg Tab Take 2 tablets 8 hours as needed 2024-05-25 No Data Available Biotin 1000 MCG Tab 1 tablet orally daily 2024-11-27 No Data Available Cranberry 400 mg Tab 2 tablets every other day 2024-11 No Data Available Problem List Problem Status Onset Date Resolved Date Prediabetes Active 2024-05-25 N/A Mixed hyperlipidemia Active 2024-05-25 N/A Primary hypertension Active 2024-05-25 N/A Chronic obstructive pulmonary disease, unspecified Act doyle 2024-05-25 N/A GERD (gastroesophageal reflux disease) Active 21-05-28 N/A Overactive bladder Active 2024-05-25 N/A Chronic low back pain Active 2024-05-25 N/A Arthritis, multiple joint involvement Active 11-06-27 N/A Age-related osteoporosis wit hout current pathological fracture Active 2024-11-26 N/A Morbid (severe) obesity due to excess calories Active 2024-11-26 N/A Weakness Resolved 2024-11-26 2024-11-26 CKD stage 3b, GFR 30-44 ml/min Resolved 2024-05-25 2024-11-26 CKD stage 3a, GFR 45-59 ml/min Active 2024-11-26 N/A Encounters Encounters Type Facility Date of Service Diagnosis/Co mplaint Home visit for evaluation and management of new patient requiring medically appropriate examination and low level of medical decision making. If using time, at least 30 minutes total time on encounter [facility] [place] 05/25/2024 PrediabetesMixed hyperlipidemiaHypertensive chronic kidney disease w stg 1-4/unsp chr kdnyChronic obstructive pulmonary disease, unspecifiedGastro-esophageal reflux disease without esophagitisOveractive bladderLow back pain, unspecifiedOther chronic painArthropathy, unspecifiedChronic kidney disease, stage 3bBody mass index (bmi) 38.0-38.9, adult Home visit for evaluation and management of new patient requiring medically appropriate examination and low level of medical decision making. If using time, at least 30 minutes total time on encounter [facility] [place] 05/25/2024 Hypertensive chronic kidney disease w stg 1-4/unsp chr kdny Home visit for evaluation and management of new patient requiring medically appropriate examination and low level of medical decision making. If using time, at least 30 minutes total time on encounter [facility] [place] 05/25/2024 Hypertensive chronic kidney disease w stg 1-4/unsp chr kdny Home visit for evaluation and management of established patient requiring medically appropriate examination and low level of medical decision making. If using time, at least 30 minutes total time on e [facility] [place] 11/27/2024 PrediabetesMixed hyperlipidemiaHypertensive chronic kidney disease w stg 1-4/unsp chr kdnyChronic obstructive pulmonary disease, unspecifiedOveractive bladderArthropathy, unspecifiedChronic kidney disease, stage 3aBody mass index (BMI) 40.0-44.9, adult Home visit for evaluation and management of established patient requiring medically appropriate examination and low level of medical decision making. If using time, at least 30 minutes total time on e [facility] [place] 11/27/2024 Hypertensive chronic kidney disease w stg 1-4/unsp chr kdny Home visit for evaluation and management of established patient requiring medically appropriate examination and low level of medical decision making. If using time, at least 30 minutes total time on e [facility] [place] 11/27/2024 Hypertensive chronic kidney disease w stg 1-4/unsp chr kdny Home visit for evaluation and management of established patient requiring medically appropriate examination and low level of medical decision making. If using time, at least 30 minutes total time on e [facility] [place] 11/27/2024 Encounter for screening for depression Home visit for evaluation and management of established patient requiring medically appropriate examination and low level of medical decision making. If using time, at least 30 minutes total time on e [facility] [place] 11/27/2024 Prediabetes Vital Signs Date of Collection Vitals 2024-05-25 11:31:25 Height - 161.29 cmWe ight - 99.79 kgBody Mass Index (BMI) - 38.36 kg/m2BP Diastolic - 72.0 mm[Hg]BP Systolic - 130.0 mm[Hg]Heart Rate - 76.0 /minRespiratory Rate - 18.0 /minBody Temperature - 36.39 CelO2 % BldC Oximetry - 94.0 % 2024-11-27 16:24:00 Height - 161.29 cmWe ight - 104.33 kgBody Mass Index (BMI) - 40.1 kg/m2BP Diastolic - 80.0 mm[Hg]BP Systolic - 132.0 mm[Hg]Heart Rate - 84.0 /minRespiratory Rate - 16.0 /minO2 % BldC Oximetry - 93.0 % Social History Social History Social History Observation Description Effec tive Time Current Smoking Status Never smoker 2024-11-26 6 Sex Female History of Procedures Procedures Service Procedure code Service date Servicing provider Phone# Home visit for evaluation and management of new patient requiring medically appropriate examination and low level of medical decision making. If using time, at least 30 minutes total time on encounter [id number] 2024-05-25 No Data Available No Data Availa ble Most recent systolic blood pressure 130 -139 mm Hg [id number] 2024-05-25 No Data Available No Data Availa ble Most recent dystolic blood pressure <80 mm Hg 2024-05-25 No Data Available No Data Availa ble Home visit for evaluation and management of established patient requiring medically appropriate examination and low level of medical decision making. If using time, at [place] [id number] 2024-11-27 No Data Available No Data Availa ble Most recent systolic blood pressure 130 -139 mm Hg 307F 2024-11-27 No Data Available No Data Availa ble Most recent dystolic blood pressure 80-89 mm Hg [id number] 2024-11-27 No Data Available No Data Availa ble No Data Available [id number] 2024-11-27 No Data Available No Data Available Advanced care planning discussed and documented, advance care plan or surrogate decision maker documented in medical record [id number] 2024-11-27 No Data Available No Data Availa ble Functional Status No Information Mental Status No Information Assessments Date of Service Assessments 2024-05-25 11:31:25 PrediabetesMixed hyp erlipidemiaPrimary hypertensionChronic obstructive pulmonary disease, unspecifiedGERD (gastroesophageal reflux disease)Overactive bladderChronic low back painArthritis, multiple joint involvementCKD stage 3b, GFR 30-44 ml/min 2024-11-27 16:24:00 PrediabetesMixed hyp erlipidemiaPrimary hypertensionChronic obstructive pulmonary disease, unspecifiedGERD (gastroesophageal reflux disease)Overactive bladderChronic low back painArthritis, multiple joint involvementCKD stage 3a, GFR 45-59 ml/min Plan of Care Date of Service Plans 2024-05-25 11:31:25 Patients most recent A1C is 5.9. DM II w/o complications was documented in her chart, however A1C range is considered prediabetic and patient is not currently and has not been treated prior for DM II. Recommend diet and exercise changes as tolerated with chronic pain.Most recent LDL is 68. Patient is currently taking atorvastatin 20mg daily. Continue taking medications as prescribed and F/U as directed.Patient BP controlled today. She is currently taking amlodipine 10mg daily. Continue taking medications as prescribed and F/U as directed.Patient is currently taking albuterol sulfate inhaler 108 mcg/act 2 puffs Q4 PRN AND Breztri 160-9-4.8 inhaler 1 puff daily and PRN. Continue taking medications as prescribed and F/U as directed.Patient is currently taking pantoprazole 40mg daily. Continue taking medications as prescribed and F/U as directed.Patient is currently taking mirabegron ER 25mg daily. Continue taking medications as prescribed and F/U as directed.Patient currently sees pain management for chronic arthritis hip and low pack pain. She is prescribed gabapentin 300mg QID, however she takes 600mg total BID. She did have approval from provider. She also takes tylenol 1000mg Q8 PRN. Continue taking medications as prescribed and F/U as directed.Patient currently sees pain management for chronic arthritis hip and low pack pain. She is prescribed gabapentin 300mg QID, however she takes 600mg total BID. She did have approval from provider. She also takes tylenol 1000mg Q8 PRN. Continue taking medications as prescribed and F/U as directed.eGFR of 36 found in [facility] chart summary after patient visit was completed. Placed recheck recommendation at beginning of note for PCP. Already encouraged increased water intake. 2024-11-27 16:24:00 Patients most recent A1C is 5.9. DM II w/o complications was documented in her chart, however A1C range is considered prediabetic and patient is not currently and has not been treated prior for DM II. Recommend diet and exercise changes as tolerated with chronic pain.Most recent LDL is 68. Patient is currently taking atorvastatin 20mg daily. Continue taking medications as prescribed and F/U as directed.Patient BP controlled today. She is currently taking amlodipine 10mg daily. Continue taking medications as prescribed and F/U as directed.Patient is currently taking albuterol sulfate inhaler 108 mcg/act 2 puffs Q4 PRN AND Breztri 160-9-4.8 inhaler 1 puff daily and PRN. Continue taking medications as prescribed and F/U as directed.Patient is currently taking pantoprazole 40mg daily. Continue taking medications as prescribed and F/U as directed.Patient is currently taking mirabegron ER 25mg daily. Continue taking medications as prescribed and F/U as directed.Patient currently sees pain management for chronic arthritis hip and low pack pain. She is prescribed gabapentin 300mg QID, however she takes 600mg total BID. She did have approval from provider. She also takes tylenol 1000mg Q8 PRN. Continue taking medications as prescribed and F/U as directed.Patient currently sees pain management for chronic arthritis hip and low pack pain. She is prescribed gabapentin 300mg QID, however she takes 600mg total BID. She did have approval from provider. She also takes tylenol 1000mg Q8 PRN. Continue taking medications as prescribed and F/U as directed.eGFR 52, improved from 36 stage 3b. Encouraged increased water intake. Goals Date Goal 2024-05-25 Discussed A1C parame ters as defined by ADA for prediabetic vs diabetic ranges. Encouraged patient that A1C of 5.9 is in prediabetic range. Recommended diet and exercise changes as tolerated. 2024-05-25 Recommended increase d water intake 2024-05-25 Discussed moderate f all risk score and fall prevention. 2024-05-25 eGFR of 36 found in [facility] chart summary after patient visit was completed. Placed recheck recommendation at beginning of note for PCP. Health Concerns Date Concern 2024-11-27 Healthy [facility] Calls is a service that involves a physician or advanced practice provider conducting comprehensive assessments in your patient s home or virtually to address crucial areas such as chronic conditions, quality gaps, social concerns, fall risk prevention, and various screenings. Please note that your patient will remain attributed to you even though they are participating in this service. If you have any questions, please reach out directly to our team at the phone number above.Your patient, Liz Medellin, 45, was seen today for a Healthy House Call visit. Patient read rights and responsibilities and consented to treatment. The purpose of this summary is to update you on the patient's current health status and share any relevant findings from the examination. 2024-11-27 Recommendations:None at this time 2024-11-27 Patient is a 79yr ol d female. They are being seen today for a [facility] Calls comprehensive exam. Patient denies any current concerns or symptoms. They deny any recent hospitalizations, illness, falls, or injury. Current diagnoses and medications are as listed below. Patient lives with spouse. They are independent with their care. They do not use any form of assistive device for ambulation regularly, but they do have a walker and/or cane available if needed. 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
--- OUTSIDE RECORDS SUMMARY | 2024-12-11 12:59 | XMS_ITS | Clinical Summary ---
Author Organization [facility] Address [address] [place] [address] Care Team Providers Care Superintendent Mechanical Name Role Phone Unavailable Primary Care Provider Unavailabl e Social History Tobacco Use Types Packs/Day Years Used Date Smoking Tobacco: Never Assessed Comments Unknown Sex and Gender Information Value Date Recorded Sex Assigned at Not on file Legal Sex Female 4:52 PM CDT Gender Identity Not on file Sexual Orientation Not on file Plan of Treatment Health Maintenance Due Date Last Done Comments Hepatitis C 1963 DTaP, Tdap and Td Vaccines ( 1 - Tdap) 1964 Pneumococcal Vaccine: 50+ Ye ars (1 of 1 - PCV) 1995 Zoster Vaccines (1 of 2) 1995 Dexa Scan (General) 2010 RSV Immunization or 60+ Years (1 - 1-dose 75+ series) 2020 COVID-19 Vaccine (2023-2 5 season) 2024 Meningococcal B Vaccine Aged Out No l onger eligible based on patient's age to complete this topic Meningococcal Vaccine Aged Out No bang abby eligible based on patient's age to complete this topic RSV Immunizations Under 20 Months Aged Out No longer eligible based on patient's age to complete this topic
--- OUTSIDE RECORDS SUMMARY | 2024-12-11 12:59 | XMS_ITS | Encounter Summary ---
Author Organization [facility] Care Team Providers Care Import/Export Specialist Name Role Phone Lucas Patel MD Primary Care Provider [phone] Tam Lott MD Unavailable [phone] Aaron Massey MD Primary Care Provider [phone] Geoffrey Yan MD Primary Care Provider [phone] Encounter Details Date Type Department Care Team (Latest Contact Info) Description 03/14/2016 Orders Only [facility] ProviderShyanne MD [address] [place] [address] Social History Tobacco Use Types Packs/Day Years Used Date Smoking Tobacco: Never Assessed Comments Unknown Sex and Gender Information Value Date Recorded Sex Assigned at Not on file 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 Historical Provider Final Res ult documented in this encounter Visit Diagnoses Not on filedocumented in this encounter Care Teams Import/Export Specialist Relationship Specialty Start Date End Date Lucas Patel MD [address] [place] [address] PCP - General Family Medicine 02/16/20 01/26/21 Aaron Massey MD [address] [address] PCP - General Family Medicine 01/27/21 02/26/21 Geoffrey Yan MD [address] [address] PCP - General Family Practice 12/06/23 Tam Lott MD [address] [address] Consulting Physician Cardiology 03/18/20 documented as of this encounter
--- OUTSIDE RECORDS SUMMARY | 2024-12-11 12:59 | XMS_ITS | Clinical Summary ---
Author Organization [facility] at [facility] Building Address [address] [place] [address] Care Team Providers Care Coal Bagger Name Role Phone Tam Lott MD Unavailable [phone] Geoffrey Yan MD Primary Care Provider [phone] Allergies No known active allergies Medications pantoprazole [...] aortic valve insufficiency 03/16/20 20 Hypertension 03/16/2020 Surgical History Surgery Date Site/Laterality Comments CHOLECYSTECTOMY 07/29/1979 - 07/28/1980 HERNIA REPAIR 07/29/1999 - 07/28/2000 HYSTERECTOMY 07/29/2004 - 07/28/2005 NEUROPLASTY / TRANSPOSITION MEDIAN NERVE AT CARPAL TUNNEL BILATERAL 07/29/2008 - 07/28/2009 CATARACT EXTRACTION, BILATERAL 07/29/2007 - 07/28/2008 Medical History Medical History Date Comments Hypertension Anxiety Spleen absent Arthritis right knee, bila ter hips and back Family History Medical History Relation Name Comments Cancer Father Heart disease Father Relation Name Status Comments Father (Age 77) Mother (Age 97) Social History Tobacco Use Types Packs/Day Years [...] on file Legal Sex Female 5:16 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 AGENT Gender Identity Not on file Sexual Orientation Not on file Obstetrics History Last Filed Vital Signs Vital Sign Reading [...] 12/06/2023 7:50 AM CDT Plan of Treatment Health Maintenance Due Date Last Done Comments Fall Risk Assessment 1945 Hepatitis C Screening 1945 Osteoporosis Screening-Bone Density Scan 1945 DTaP/Tdap/Td Vaccine (1 - Tdap) 1956 Hepatitis B Screening 1963 Zoster Vaccine (1 of 2) 1995 Well Visit 65+ 2010 Pneumococcal vaccine 65+ (2 of 2 - PPSV23) 05/13/2017 05/13/2016 Depression Screening 07/10/2022 07/10/2021 Influenza Vaccine (#1) 2024 Insurance [facility] Care Teams Coal Bagger Relationship Specialty Start Date End Date Geoffrey Yan MD [address] [address] PCP - General Family Practice 12/06/23 Tam Lott MD [address] [address] Consulting Physician Cardiology 03/18/20
== END 2024-12-11 12:50 | disposition home or self-care (01) ==
PROVIDERS: PCP Nurse Practitioner Family; Visit Provider Nurse Practitioner Family
DX: N20.0 Calculus of kidney (principal); K56.7 Ileus, unspecified
CPT/HCPCS: 74177; Q9967